=== PATIENT | male | born 1955 | race Caucasian/White ===

== ENCOUNTER → 2020-06-24 | Outpatient (CLI) | payer BC ==
--- NOTE | 2020-06-24 10:18 | CT ---
EXAMINATION TYPE: CT heart w calcium score DATE OF EXAM: 06/24/2020 COMPARISON: None. HISTORY: Screening for cardiovascular disorder. 213.9. Hypertension. CT DLP: 80.70 mGycm Automated exposure control for dose reduction was used. CT CALCIUM SCORING Coronary calcium is a marker for plaque (fatty deposits) in a blood vessel or atherosclerosis (harden ing of the arteries). The presence and amount of calcium detected in a coronary artery by the CT sca n, indicates the presence and amount of atherosclerotic plaque. These calcium deposits appear years before the development of heart disease symptoms such as chest pain and shortness of breath. A calcium score is computed for each of the coronary arteries based upon the volume and density of th e calcium deposits. This can be referred to as your calcified plaque burden. It does not correspond directly to the percentage of narrowing in the artery but does correlate with the severity of the un derlying coronary atherosclerosis. PROCEDURE TECHNIQUE - Prospective Gating was used. Slice thickness: 3mm. Density threshold (HU): 130, Pixel threshold: 3, Algorithm: discrete. RESULTS Region: LM Calcium Score ([place]): 0.00 Volume (mm3): 0.00 Mass (g): 0.00 Region: RCA Calcium Score ([place]): 6.07 Volume (mm3): 9.94 Mass (g): 3.31 Region: LAD Calcium Score ([place]): 71.41 Volume (mm3): 53.56 Mass (g): 17.85 Region: CX Calcium Score ([place]atston): 0.00 Volume (mm3): 0.00 Mass (g): 0.00 Total: Calcium Score ([place]atston): 77.48 Volume (mm3): 63.49 Mass (g): 21.16 TOTAL CALCIUM SCORE: 77.48 IMPRESSION: Right coronary artery noted dominant. Some multilevel spurring in the visualized thoracic spine. Calcium Score: 11-100 Implication: Definite, at least mild atherosclerotic plaque Risk of Coronary Artery Disease: Mild or minimal coronary narrowings likely. CALCIUM SCORE IMPLICATION RISK OF C ORONARY ARTERY DISEASE 0 No identifiable plaque Very low, generally less than 5% 1-10 Minimal identifiable plaque Very unlikely, less than 10% 11-100 Definite, at least mild atherosclerotic plaque Mild or m inimal coronary narrowings likely 101-400 Definite, at least moderate atherosclerotic plaque Mild coronary ar jb disease highly likely, significant narrowing possible 401 or Higher Extensive atherosclerotic plaque High lik elihood of at least one significant coronary narrowing
== END | disposition home or self-care (01) ==
LOC: RADCTMAIN 08:55
PROVIDERS: ATTEND Family Medicine
DX: Z13.6 Encounter for screening for cardiovascular disorders (principal); I25.10 Atherosclerotic heart disease of native coronary artery without angina pectoris; I10 Essential (primary) hypertension
CPT/HCPCS: 75571

== ENCOUNTER → 2020-12-22 | Outpatient (CLI) | payer BC ==
--- NOTE | 2020-12-22 12:02 | XR ---
EXAM TYPE: LUMBAR SPINE X RAY SERIES COMPARISON: NONE HISTORY: Pain TECHNIQUE: 4 views are submitted. FINDINGS: Alignment is anatomic. The pedicles are intact. The transverse processes are intact. There is hype rtrophic and degenerative changes at multiple levels with facet arthropathy involving the lower lumba r spine. 5 mm calcification overlying the left transverse process of L2. IMPRESSION: 1. Multilevel hypertrophic and degenerative disc disease with facet arthropathy. 2. 5 mm left upper quadrant calcification potentially within the left kidney correlate clinically.
== END | disposition home or self-care (01) ==
LOC: RADXRMAIN 09:54
PROVIDERS: ATTEND Family Medicine
DX: M51.36 Other intervertebral disc degeneration, lumbar region (principal); M46.96 Unspecified inflammatory spondylopathy, lumbar region
CPT/HCPCS: 72100

== ENCOUNTER → 2022-12-06 | Outpatient (CLI) | payer MEDICARE ==
--- NOTE | 2022-12-07 00:02 | MR ---
EXAMINATION TYPE: MR angio head wo con DATE OF EXAM: 12/06/2022 COMPARISON: None HISTORY: Stroke, aphasia. CONTRAST: None TECHNIQUE: Multiplanar multiecho imaging on a 3.0 Margie magnet is performed through the [place] [facility]. 3-D [id number] imaging is performed. Source images are reviewed on the computer in the axi al plane. Reconstructed images rotating on the computer are reviewed. FINDINGS: There is a mixed signal area within the anterior right frontal lobe extending towards the m argin. This measures 2.7 x 2.3 cm, example image series 301 image 137. This has some high signal area within the inferior portion measuring 1.6 x 1.0 cm. An acute to subacute hemorrhage may be present a t this location. Recommend additional evaluation with CT. Follow-up MRI brain may be useful. The internal carotid arteries bifurcate normally into A1 and M1 segments. The A2 segments are normal . Middle cerebral artery branches are normal. Anterior communicating artery is prominent at 0.6 cm. Aneurysm at the anterior communicating artery m ay be present. The right posterior communicating artery is absent. The left posterior communicating artery is absent. Vertebrobasilar arteries within the [id number] are normal. Posterior cerebral vasculature is norm al. No obstructions are identified. No significant flow-limiting stenosis is evident. IMPRESSIONS: 1. There may be hemorrhage in the right frontal lobe. Additional workup with CT is recommended. 2. 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
== END | disposition home or self-care (01) ==
LOC: RADMRIMAIN 18:57
PROVIDERS: ATTEND Family Medicine
DX: I60.9 Nontraumatic subarachnoid hemorrhage, unspecified (principal); I63.9 Cerebral infarction, unspecified; R47.01 Aphasia
CPT/HCPCS: 70544

== ENCOUNTER 2022-12-18 05:26 | Inpatient (IN) | payer MEDICARE ==
[2022-12-18] MEDS ORDERED: METOCLOPRAMIDE 5 MG/ML 2 ML VIAL IVP STA (06:41)
[2022-12-18] MEDS ORDERED: KETOROLAC 15 MG/ML 1 ML VIAL IVP STA (06:41)
[2022-12-18] MEDS ORDERED: SODIUM CHLORIDE 0.9% 1,000 ML IV STA (06:41)
[2022-12-18] MEDS ORDERED: diphenhydrAMINE 50 MG/ML 1 ML VIAL IVP STA (06:41)
--- NOTE | 2022-12-18 06:42 | ED ---
Headache HPI - General Chief Complaint: Headache Stated Complaint: Headache, Loss of memory, Shakes, Stroke history Time Seen by Provider: 12/18/22 06:42 Source: patient, RN notes reviewed Mode of arrival: wheelchair Limitations: no limitations - History of Present Illness Initial Comments: Patient is a pleasant 67-year-old male presenting to the emergency room with a spouse from home with complaints of severe headache. He reports that he had a headache yesterday throughout the day which resolved around 5 PM came back a few hours later. The headache persisted throughout the night and became so severe that he presented to the emergency room. He was concerned regarding the severity of his headache due to recent history of a hemorrhagic stroke which he had in August of this year while he was in [place] for the winter. He reports that he had multiple CT scans while in [place] and did not require any intervention for the brain bleed that was identified in the parietal region. He is following with his primary care provider locally in regards to follow-up from his brain bleed and headaches along with residual CVA symptoms of mild right- sided weakness along with occasional blurred vision and occasional slurred speech. His primary care provider referred him to a local neurologist whom he has not seen yet he has an appointment upcoming with Dr. Taylor. He was scheduled for a repeat computed tomography scan ordered by his primary care provider prior to seeing his new neurologist. He denies any new focal neurological deficits, new speech difficulties, new visual impairment, altered mental status, chest pain, shortness of breath, abdominal pain, nausea, vomiting, fevers or chills. In addition to his hemorrhagic stroke history he has a past medical history significant for breast cancer and hypertension. - Related Data Home Medications Medication Instructions Recorded Confirmed lisinopriL [Lisinopril] 10 mg PO DAILY 03/30/16 03/30/16 Allergies Allergy/AdvReac Type Severity Reaction Status Date / Time No Known Allergies Allergy Verified 12/18/22 05:35 Review of Systems ROS Statement: Those systems with pertinent positive or pertinent negative responses have been documented in the HPI. ROS Other: All systems not noted in ROS Statement are negative. Past Medical History Past Medical History: Cancer, CVA/TIA (Hemorrhagic with mild residual right- sided weakness and occasional slurred speech.), Hypertension Additional Past Medical History / Comment(s): breast cancer History of Any Multi-Drug Resistant Organisms: None Reported Past Surgical History: Breast Surgery Past Psychological History: No Psychological Hx Reported Smoking Status: Never smoker Past Alcohol Use History: Daily Past Drug Use History: None Reported General Exam Limitations: no limitations General appearance: alert, in no apparent distress Head exam: Present: atraumatic, normocephalic, normal inspection Eye exam: Present: normal appearance, PERRL, EOMI. Absent: scleral icterus, conjunctival injection, periorbital swelling ENT exam: Present: normal exam, mucous membranes moist Neck exam: Present: normal inspection, full ROM Respiratory exam: Present: normal lung sounds bilaterally. Absent: respiratory distress, wheezes, rales, rhonchi, stridor Cardiovascular Exam: Present: regular rate, normal rhythm, normal heart sounds. Absent: systolic murmur, diastolic murmur, rubs, gallop, clicks GI/Abdominal exam: Present: soft, normal bowel sounds. Absent: distended, tenderness, guarding, rebound, rigid Extremities exam: Present: normal inspection, full ROM. Absent: tenderness, pedal edema, joint swelling Back exam: Present: normal inspection, full ROM Neurological exam: Present: alert, oriented X3, other (Occasional slurred speech) Expanded Cranial nerves: EOM's Intact: Normal, Gag Reflex: Normal, Tongue Deviation: Normal, Nystagmus: Normal, Facial Sensation: Normal, Facial Palsy with Forehead Movement: Normal, Facial Palsy without Forehead Movement: Normal Motor strength exam: RUE: 5 (Strong but slightly weaker than left), LUE: 5, RLE: 5 (Strong but slightly weaker than left), LLE: 5 [place] Total: 15 Psychiatric exam: Present: normal affect, normal mood Skin exam: Present: warm, dry, intact, normal color. Absent: rash Course Vital Signs 12/18/22 12/18/22 05:35 07:00 Temperature 98.2 F 97.8 F Pulse Rate 71 66 Respiratory 18 16 Rate Blood Pressure 158/99 149/96 O2 Sat by Pulse 98 97 Oximetry Medical Decision Making - Medical Decision Making Was pt. sent in by a medical professional or institution (, PA, HV[employer]ET METAL INST[employer]ER, urgent care, hospital, or intermediate...) When possible be specific @ - No Did you speak to anyone other than the patient for history (EMS, parent, family, police, friend...)? What history was obtained from this source @ -No Did you review nursing and triage notes (agree or disagree)? Why? @ -I reviewed and agree with nursing and triage notes except no altered mental status or confusion present. Were old charts reviewed (outside hosp., previous admission, EMS record, old EKG, old radiological studies, urgent care reports/EKG's, intermediate records)? Report findings @ -No old charts were reviewed Differential Diagnosis (chest pain, altered mental status, abdominal pain women, abdominal pain men, vaginal bleeding, weakness, fever, dyspnea, syncope, headache, dizziness, GI bleed, back pain, seizure, CVA, palpatations, mental health, musculoskeletal)? @ -Differential Headache: Migraine, tension, cluster, carbon monoxide, central venous thrombosis, pension karma temporal arteritis, acute closure glaucoma, intercranial hemorrhage, mastoiditis, sinusitis, head injury, this is not meant to be an all-inclusive list. EKG interpreted by me (3pts min.). @ -None done X-rays interpreted by me (1pt min.). @ -None done CT interpreted by me (1pt min.). @ -CT of the brain: No acute intracranial hemorrhage mass or shift. Report per radiologist edematous changes with sulcal effacement involving right parietal lobe encephalomalacia anterior right frontal lobe likely secondary to previous infarct. U/S interpreted by me (1pt. min.). @ -None done What testing was considered but not performed or refused? (CT, X-rays, U/S, labs)? Why? @ -None What meds were considered but not given or refused? Why? @ -None Did you discuss the management of the patient with other professionals (professionals i.e. , WARREN, HV[employer] SHEET METAL INSTALLER, lab, RT, psych nurse, healthcare social worker, service provider, teacher, community development officer, correctional case manager)? Give summary @ -Yes, spoke with Dr. Conrad regarding patient's presentation previous workup and computed tomography scan results. He advised that he will see patient here at this facility and no need to transfer patient out to another facility for neurosurgery consult at this time. Spoke with Dr. Shea regarding patient's presentation workup and Dr. Juárez's accept since of the patient here at this facility advising the need for further evaluation and monitoring; she is accepting of admission with neurology consult. Was smoking cessation discussed for >3mins.? @ -No Was critical care preformed (if so, how long)? @ -No Were there social determinants of health that impacted care today? How? (Homelessness, low income, unemployed, alcoholism, drug addiction, transportation, low edu. Level, literacy, decrease access to med. care, penitentiary, r ehab)? @ -No Was there de-escalation of care discussed even if they declined (Discuss DNR or withdrawal of care, Hospice)? DNR status @ -No What co-morbidities impacted this encounter? (DM, HTN, Smoking, COPD, CAD, Cancer, CVA, ARF, Chemo, Hep., AIDS, mental health diagnosis, sleep apnea, morbid obesity)? @ -Hypertension, previous hemorrhagic stroke Was patient admitted / discharged? Hospital course, mention meds given and route, prescriptions, significant lab abnormalities, going to OR and other pertinent info. @ -57-year-old male presenting to the emergency room with persistent headache with remote history of hemorrhagic stroke noting residual symptoms of mild right-sided weakness, difficulty with speech and intermittent blurred vision. He denies any blurred vision at this time. CT of brain without contrast ordered by triage and provider. Additional orders of laboratory studies CBC, coags and CMP ordered. Will give migraine cocktail with 1 L IV fluids, Toradol, Reglan and Benadryl. Computed tomography scan with out acute intracranial hemorrhage however there is sulcal effacement involving the right parietal lobe and encephalomalacia of anterior right frontal along. Headache improved with migraine cocktail. Laboratory study results include normal CBC, normal coags slight dehydration with a BUN of 23, normal creatinine. Glucose elevated 109 over enzymes and electrolytes all normal. Findings of of computed tomography scan and previous neurovascular history discussed with on-call neurologist Dr. Ziegler who advised no indication for transfer of patient and he will see patient here at this facility. Spoke with Dr. Hickman covering for patient's primary care provider regarding patient's presentation workup and recommendation of admission with continued monitoring along with follow-up imaging to further evaluate etiology of sulcal effacement and encephalomalacia. She is accepting of admission. Will admit patient in stable condition to medical surgical unit under [facility] for further evaluation and treatment of headache and encephalomalacia Undiagnosed new problem with uncertain prognosis? @ -No Drug Therapy requiring intensive monitoring for toxicity (Heparin, Nitro, Insulin, Cardizem)? @ -No Were any procedures done? @ -No Diagnosis/symptom? @ -Encephalomalacia Acute, or Chronic, or Acute on Chronic? @ -Acute Uncomplicated (without systemic symptoms) or Complicated (systemic symptoms)? @ -Complicated Side effects of treatment? @ -No Exacerbation, Progression, or Severe Exacerbation? @ -No Poses a threat to life or bodily function? How? (Chest pain, USA, VT, pneumonia, PE, COPD, DKA, ARF, appy, cholecystitis, CVA, Diverticulitis, Homicidal, Suicidal, threat to staff... and all critical care pts) @ -Yes, at risk for cerebral infarct. Diagnosis/symptom? @ -Headache Acute, or Chronic, or Acute on Chronic? @ -Acute Uncomplicated (without systemic symptoms) or Complicated (systemic symptoms)? @ -Complicated Side effects of treatment? @ -none Exacerbation, Progression, or Severe Exacerbation] @ -no Poses a threat to life or bodily function? @ -Yes, history of hemorrhagic stroke at risk for cerebral infarct and repeat intracranial hemorrhage. Case discussed with Dr. Gonzalez. - Lab Data Result diagrams: 12/18/22 06:56 12/18/22 06:56 Lab Results 12/18/22 12/18/22 12/18/22 Range/Units 06:56 06:56 06:56 WBC 5.2 (3.8-10.6) k/uL RBC 4.84 (4.30-5.90) m/uL Hgb 14.5 (13.0-17.5) gm/dL Hct 42.1 (39.0-53.0) % MCV 87.0 (80.0-100.0) fL MCH 30.0 (25.0-35.0) pg MCHC 34.4 (31.0-37.0) g/dL RDW 13.4 (11.5-15.5) % Plt Count 196 (150-450) k/uL MPV 7.6 Neutrophils % (Manual) 65 % Lymphocytes % (Manual) 24 % Monocytes % (Manual) 10 % Eosinophils % (Manual) 1 % Neutrophils # (Manual) 3.38 (1.3-7.7) k/uL Lymphocytes # (Manual) 1.25 (1.0-4.8) k/uL Monocytes # (Manual) 0.52 (0-1.0) k/uL Eosinophils # (Manual) 0.05 (0-0.7) k/uL Nucleated RBCs 0 (0-0) /100 WBC Manual Slide Review Performed RBC Morphology Normal PT 10.4 (9.0-12.0) sec INR 1.0 (<1.2) APTT 22.8 (22.0-30.0) sec Sodium 137 (137-145) mmol/L Potassium 3.9 (3.5-5.1) mmol/L Chloride 103 (98-107) mmol/L Carbon Dioxide 25 (22-30) mmol/L Anion Gap 9 mmol/L BUN 23 H (9-20) mg/dL Creatinine 0.67 (0.66-1.25) mg/dL Est GFR (CKD-EPI)AfAm >90 (>60 ml/min/1.73 sqM) Est GFR (CKD-EPI)NonAf >90 (>60 ml/min/1.73 sqM) Glucose 109 H (74-99) mg/dL Calcium 9.0 (8.4-10.2) mg/dL Total Bilirubin 1.0 (0.2-1.3) mg/dL AST 32 (17-59) U/L ALT 25 (4-49) U/L Alkaline Phosphatase 71 (38-126) U/L Total Protein 7.3 (6.3-8.2) g/dL Albumin 4.3 (3.5-5.0) g/dL - Radiology Data Radiology results: report reviewed, image reviewed Disposition Clinical Impression: Headache, Encephalomalacia Disposition: ADMITTED IP TO THIS [facility] Condition: Stable Time of Disposition: 08:16
[2022-12-18 07:08] LABS: HCT 42.1 % (39.0-53.0); HGB 14.5 gm/dL (13.0-17.5); MCHC 34.4 g/dL (31.0-37.0); Mean Platelet Volume 7.6; Platelet Count 196 k/uL (150-450); RBC 4.84 m/uL (4.30-5.90); RDW 13.4 % (11.5-15.5); WBC 5.2 k/uL (3.8-10.6)
[2022-12-18 07:15] LABS: Partial Thromboplastin Time 22.8 sec (22.0-30.0); Prothrombin Time 10.4 sec (9.0-12.0)
[2022-12-18 07:28] LABS: ALT 25 U/L (4-49); AST 32 U/L (17-59); African American GFR (CKD) >90 (>60 ml/min/1.73 sqM); Albumin 4.3 g/dL (3.5-5.0); Alkaline Phosphatase 71 U/L (38-126); Anion Gap 9 mmol/L; Blood Urea Nitrogen 23 mg/dL (9-20); Carbon Dioxide 25 mmol/L (22-30); Chloride 103 mmol/L (98-107); Glucose 109 mg/dL (74-99); Non-African American GFR(CKD) >90 (>60 ml/min/1.73 sqM); Potassium 3.9 mmol/L (3.5-5.1); Sodium 137 mmol/L (137-145); Total Protein 7.3 g/dL (6.3-8.2)
--- NOTE | 2022-12-18 07:50 | CT ---
EXAMINATION TYPE: CT brain wo con DATE OF EXAM: 12/18/2022 COMPARISON: MRA head 12/06/2022 HISTORY: 67-year-old male headache, rule out intracranial hemorrhage. TECHNIQUE: Examination was done in axial plane without intravenous contrast. Coronal and sagittal r econstructions performed. CT DLP: 1142.4 mGycm Automated exposure control for dose reduction was used. FINDINGS: There appears to be slightly asymmetric sulcal effacement superior right parietal convexity. Encephal omalacia anterior right frontal lobe likely related to prior infarct. No midline shift or acute intracranial hemorrhage. No effacement of basal subarachnoid cisterns. No h ydrocephalus. Paranasal sinuses and mastoid air cells well pneumatized. Orbits and globes are intact. IMPRESSION: There appears to be some edematous change with sulcal effacement involving the right parietal lobe. R ecommend further assessment with MRI head without and with contrast as well as MRV. Evolving infarct and underlying mass are some considerations. We note the findings on recent MRA which suggested possi ble hemorrhage within the right frontal lobe, a separate region. The CT shows the patient's encephalo malacia here. Some underlying subacute or chronic (isodense or hypodense) blood products are possible if this corresponds to the site of patient's reported recent stroke. No acute intracranial hemorrhag e seen. Called to Dr. Gonzalez in the ER at 7:40am.
[2022-12-18 08:00] LABS: Eosinophils # (M) 0.05 k/uL (0-0.7); Lymphocytes # (M) 1.25 k/uL (1.0-4.8); Monocytes # (M) 0.52 k/uL (0-1.0); Neutrophils # (M) 3.38 k/uL (1.3-7.7); Neutrophils % (M) 65 %; Nucleated Red Blood Cells 0 /100 WBC (0-0); Total Cells Counted 100
[2022-12-18 08:02] LABS: RBC Morphology Normal
[2022-12-18] MEDS ORDERED: MORPHINE SULFATE 4 MG/ML SYRINGE IV PRN (08:21)
[2022-12-18] MEDS ORDERED: traMADol 50 MG TAB PO PRN (08:21)
[2022-12-18] MEDS ORDERED: NALOXONE 0.4 MG/ML 1 ML VIAL IV PRN (08:21)
[2022-12-18] MEDS: SODIUM CHLORIDE 0.9% 1,000 ML IV SCH (09:15)
--- NOTE | 2022-12-18 10:34 | CT ---
EXAMINATION TYPE: CT angio head neck DATE OF EXAM: 12/18/2022 COMPARISON: Correlation MRA 12/06/2022 HISTORY: 67-year-old male headache, Hit head while in [place], severe headache TECHNIQUE: Contiguous axial scanning of the head and neck performed with IV Contrast, patient injecte d with 65 mL of Isovue 370. Coronal/sagittal MIP reconstructions performed. 3-D reconstructions gener ated on a dedicated independent workstation. CT DLP: 590.9 mGycm Automated exposure control for dose reduction was used. FINDINGS: NECK: Conventional arch vessels branching anatomy. Mild atherosclerotic narrowing at the origin of the right vertebral artery. Both vertebral arteries a re codominant and otherwise patent throughout their course. The right common and right internal carotid arteries are widely patent. The left common and left internal carotid arteries are widely patent. NASCET criteria is utilized. HEAD: The dural venous sinuses are patent. The vertebral and basilar arteries as well as the remainder of the posterior circulation are patent w ithout any narrowing. The bilateral internal carotid arteries are patent with only mild atherosclerotic calcifications ben g the supraclinoid portions. There is variant anatomy of the PATRICK with fenestrated A1 segment which continues independently. 2 haseeb tional A2 branches arise at the level of the anterior communicating artery for a total of 3 anterior cerebral arteries distal to the ACOM. The anterior communicating artery aneurysm questioned on the henrietta hernandez's MRA is not confirmed. Remainder of the anterior circulation otherwise patent. IMPRESSION: NECK: 1. WIDELY PATENT CAROTID AND VERTEBRAL ARTERIES OF THE NECK. HEAD: 2. EXAM CONFIRMS PATENCY OF THE DURAL VENOUS SINUSES. MRV WILL NOT BE REQUIRED. 3. NO LARGE VESSEL INTRACRANIAL ARTERIAL OCCLUSION, SIGNIFICANT STENOSIS, OR ANEURYSMAL CHANGE IS SEE N. 4. ANATOMIC VARIATION OF THE ANTERIOR CEREBRAL ARTERY CIRCULATION OUTLINED ABOVE. THE QUESTIONED A COM ANEURYSM ON PREVIOUS MRA HEAD OF 12/06/2022 IS NOT CONFIRMED ON THIS STUDY.
[2022-12-18] MEDS ORDERED: hydrALAZINE HCL 20 MG/ML 1 ML VIAL IVP STA (10:37)
--- NOTE | 2022-12-18 12:07 | P.CNNES ---
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 Patient is accompanied with his . Patient stated that the yesterday between 9:00 to 5 PM he had very severe headache and was throughout the head and he said it was excruciating pain. He had no nausea vomiting no focal weakness or numbness. He just felt was very anxious she was 10 over 10. Which resolved. Otherwise and overnight he again started having the headache and at 4:00 in the morning that today he could not tolerate the headache anymore and has some nausea so he decided to come to seek medical attention.Denies any focal weakness numbness. Denies any recent head trauma. He denies being on any anticoagulation or antiplatelet that. He states that he has intermittent thumb tremor the right more than left hand and denies any loss of consciousness. He is on Keppra 750 mg 2 tablets twice a day. He has an appointment with Dr. Taylor neurologist end of this month. Of note patient had the MR angiography of the head without ordered by his primary which the patient completed in the 12/06/2022 and is reported as there may be hemorrhage in the right frontal lobe. Additional workup with CT is recommended. 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 He is pending to have MRI to be done about pending insurance authorization. He drinks about the 5 shots daily. He is on thiamine 100mg daily. He denies of any illicit drug use. Patient stated that in August 30/2023 patient had a significant head trauma to the head and it was over the left side but denies any loss of consciousness and that 2 days later later could not wake-him up with eyes rolling back and found to have a bleed over the right frontal and was invalid by multiple neurosurgeons no intervention was needed an unknown cause of the bleed and he was evaluated at [facility] in [place], [place]. He had the MRI of the brain at that time over there. As a result of the bleed he has some difficulty with speech. He had a seizure 2 weeks after his bleed as well. Some of the workup to this hospital visit consisted of: Initial blood pressure is 158/99 and repeated is 149/96. Cbc with different and comprehensive metabolic panels seems unremarkable. CT of the head is reported as there appears to be some at the Frances change with sulcal effacement involving the right parietal lobe. Recommend further assessment with MRI head with and without contrast as well as MRV. Evolving infarct and underlying mass are some consideration. We note the finding on the recent MRA which suggested possible hemorrhage within the right frontal lobe, a separate region. The CT shows the patient encephalomalacia here. Some underlying subacute or chronic) isodense or hypodense) blood products are possible if this corresponds to the site of patient reported recent stroke. No acute intracranial hemorrhage is seen. I personally reviewed the CT and agree with the report. CTA head and neck is reported as the CT of the neck is reported as widely patent carotid and vertebral arteries of the neck. Was a CT angiography of the head is reported as exam confirmed patency of the dural venous sinuses. MRV will not be required. No large vessel intracranial arterial occlusion, significant stenosis or aneurysm changes seen. Anatomic variation of the anterior cerebral artery circulation as outlined above. The question a calm aneurysm on the previous MRA head on 12/06/2022 is not confirmed on the study. Review of Systems Review of system: The 12 point system was reviewed and apparent positive and negative per HPI. Past Medical History Past Medical History: Cancer, CVA/TIA (Hemorrhagic with mild residual right- sided weakness and occasional slurred speech.), Hypertension Additional Past Medical History / Comment(s): breast cancer History of Any Multi-Drug Resistant Organisms: None Reported Past Surgical History: Breast Surgery Past Psychological History: No Psychological Hx Reported Smoking Status: Never smoker Past Alcohol Use History: Daily Past Drug Use History: None Reported Medications and Allergies Home Medications Medication Instructions Recorded Confirmed Type Thiamine [Vitamin B-1] 100 mg PO DAILY 12/18/22 12/18/22 History amLODIPine [Norvasc] 5 mg PO DAILY 12/18/22 12/18/22 History levETIRAcetam [Keppra] 1,500 mg PO BID 12/18/22 12/18/22 History Allergies Allergy/AdvReac Type Severity Reaction Status Date / Time No Known Allergies Allergy Verified 12/18/22 11:45 Physical Examination - Vital Signs Vital Signs: Vital Signs Temp Pulse Resp BP Pulse Ox 12/18/22 10:58 98.0 F 59 L 18 132/79 96 12/18/22 07:00 97.8 F 66 16 149/96 97 12/18/22 05:35 98.2 F 71 18 158/99 98 Intake and Output 12/17/22 12/18/22 12/18/22 22:59 06:59 14:59 Other: Weight 88.451 kg GENERAL: The patient is lying in bed and is not in acute distress. NEUROLOGICAL: Higher mental function: The patient is awake, alert, oriented to self, place and time. Patient is following commands. No aphasia and no neglect. Cranial nerves: The pupils are round, equal and reactive to light and accommodation. Visual branch are full to confrontation throughout. Extraocular movement is intact no nystagmus is noted. Facial sensation is normal to touch throughout. The facial strength is normal throughout. Hearing is normal bilaterally to hand rub. Tongue is midline and moved [id number] without any difficulty. No dysarthria is noted. Shoulder shrug is normal bilaterally. Motor: The strength is 5 over 5 throughout. Normal tone and bulk. Cerebellum: Normal finger to nose bilaterally. Sensation: Sensation is normal to touch throughout. Reflexes (right/left): 2+ throughout. Plantars are mute bilaterally. Results - Laboratory Findings CBC and BMP: 12/18/22 06:56 12/18/22 06:56 Abnormal Lab Findings: Abnormal Labs 12/18/22 06:56 BUN 23 H Glucose 109 H Assessment and Plan Assessment: Acute Cephalgia and on CT head today shows sulcal effacement over the right pareital: Rule out underlying mass or infarct.---currently headache improved ?Reported aneurysm on right PATRICK on recent MRA head on 12/06/22 but today's CTA was negative for aneurysm History of hemorrhagic stroke over the right parietal in 09/01/2022: Unknown cause (he was evaluated by Neurosurgeon over at [facility] at [place], [place] and no intervention). Had headache trauma to left head two days prior to event but unsure exact cause. 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 Ordered MRI Brain w/ and w/o STAT (to be completed tomorrow since no techs today). Ordered routine EEG since patient states having intermittent twitch of the bilateral thumbs (right > Left) without LOC. Rule out focal motor seizure with loss of awareness. Continued his home medication of Keppra 1500mg bid (on 750mg 2 tab bid). Recommend the SBP <140 and keep between 115-130's). Q2 hour neuro checks. Will have the patient be in ICU for closer monitoring. Recommend diagnostic cerebral angiogram as outpatient to rule out definitely any AVM or aneurysm. Placed on seizure precaution and pads. Placed on thiamine 100mg daily. Patient was counseled on alcohol cessation. Ordered alcohol level. Watch for any alcohol withdrawal and will defer management to primary team. He has a coming-up with Dr. Taylor (Neurologist at end of this month). Will defer rest of management to primary team and ICU team. Thank you for the consultation. The plan is discussed with patient, his who is at bedside, ED team and ICU team. Dr. Morales will start neurology service tomorrow A.M. Time with Patient: Greater than 30
[2022-12-18] MEDS: THIAMINE 100 MG TAB PO SCH (12:09)
[2022-12-18 14:53] LABS: Glucose,Whole Blood 141 mg/dL (70-110)
[2022-12-18] MEDS ORDERED: LABETALOL 5 MG/ML VIAL MDV IVP PRN (15:32)
[2022-12-18] MEDS: ACETAMINOPHEN TAB 325 MG TAB PO PRN (15:50)
[2022-12-18] MEDS: CLEVIDIPINE BUTYRATE 25 MG in EMPTY BAG 1 BAG IV SCH (17:37)
--- NOTE | 2022-12-19 00:59 | P.CNPUL ---
History of Present Illness Consult date: 12/19/22 Requesting physician: Dean Juárez Reason for consult: other (ICU management) Chief complaint: Severe headache History of present illness: I am seeing this patient in new consultation today 12/19/2022 for ICU management, as the patient had a severe headache on arrival, and there was concern for recurrent hemorrhagic stroke. This is a 67-year-old male with history of recent hemorrhagic stroke over the right frontal region on 09/01/2022. Apparently, while the patient was in [place], he had a hemorrhagic CVA which was managed at an outside facility. The patient attributes this to sustaining head trauma while hitting his head on his camper i believe. The patient reports initial right sided hemiparesis and vision disturbances. Following his recovery, the patient's only remaining residual was slurred speech, and he has seen a speech therapist outpatient. The patient also had 2 episodes of seizures following his stroke, and is currently maintained on Keppra. 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 The patient was scheduled with a local neurologist, Dr. Taylor, for follow-up later this month. Patient also has history of hypertension, breast cancer status post mastectomy 14 years ago, and alcoholism. The patient presented to the emergency room yesterday morning complaining of a severe headache rated 10 out of 10 on a 10 point numerical scale. This was accompanied with some nausea but no vomiting. No other deficits were noted at that time. He is not on any anticoagulants or antiplatelet medication. Initial workup included a brain CT which showed some edematous changes with sulcal effacement involving the right parietal lobe. There was concern for evolving infarct or underlying mass. A follow-up brain CTA showed no acute vascular occlusions or significant stenosis. On my evaluation, the patient is on room air, in no acute distress. His headache has resolved, and he has no focal neurological deficits. Apparently, the patient was hypertensive in the emergenc y room, and Cleviprex was ordered but did not have to be started. Blood pressure seems to be well managed on a combination of his home Norvasc and when necessary labetalol pushes. CBC and BMP on arrival were unremarkable. Serum alcohol level was less than 10. He has no other complaints at this time. Vital signs are stable. Review of Systems REVIEW OF SYSTEMS: CONSTITUTIONAL: Denies any recent significant weight loss or weight gain. EYES: Denies change in vision. EARS, NOSE, MOUTH, THROAT: Denies headaches, denies sore throat. CARDIOVASCULAR: Denies chest pain, palpitations or syncopal episodes. RESPIRATORY: Denies shortness of breath, cough, congestion or hemoptysis. GASTROINTESTINAL: Denies change in appetite, abdominal pain, nausea and vomiting, or diarrhea GENITOURINARY: Denies hematuria, denies infections. MUSKULOSKELETAL: Denies pain, denies swelling. INTEGUMENTARY: Denies rash, denies eczema. NEUROLOGICAL: See HPI PSYCHIATRIC: Denies anxiety, denies depression. HEMATOLOGIC/LYMPHATIC: Denies anemia, denies enlarged lymph node Past Medical History Past Medical History: Cancer, CVA/TIA, Hypertension Additional Past Medical History / Comment(s): breast cancer History of Any Multi-Drug Resistant Organisms: None Reported Past Surgical History: Breast Surgery Past Anesthesia/Blood Transfusion Reactions: No Reported Reaction Type of Cardiac Device: Loop Device Placement Date:: September 2022 Past Psychological History: No Psychological Hx Reported Smoking Status: Never smoker Past Alcohol Use History: Daily Past Drug Use History: None Reported - Past Family History Father Family Medical History: CVA/TIA Medications and Allergies Home Medications Medication Instructions Recorded Confirmed Type Thiamine [Vitamin B-1] 100 mg PO DAILY 12/18/22 12/18/22 History amLODIPine [Norvasc] 5 mg PO DAILY 12/18/22 12/18/22 History levETIRAcetam [Keppra] 1,500 mg PO BID 12/18/22 12/18/22 History Allergies Allergy/AdvReac Type Severity Reaction Status Date / Time No Known Allergies Allergy Verified 12/18/22 11:45 Physical Exam Vitals: Vital Signs Temp Pulse Pulse Resp BP Pulse Ox 12/18/22 23:00 53 L 14 136/85 92 L 12/18/22 22:30 54 L 11 L 125/91 93 L 12/18/22 22:00 52 L 10 L 131/81 96 12/18/22 21:30 53 L 13 130/84 92 L 12/18/22 21:00 55 L 19 140/88 93 L 12/18/22 20:30 56 L 12 136/81 94 L 12/18/22 20:00 98.1 F 57 L 54 L 14 134/85 93 L 12/18/22 19:30 57 L 14 129/78 93 L 12/18/22 19:00 57 L 16 123/78 93 L 12/18/22 18:30 58 L 17 127/82 93 L 12/18/22 18:00 60 15 129/79 94 L 12/18/22 17:30 59 L 15 122/76 94 L 12/18/22 17:00 62 13 134/79 94 L 12/18/22 16:30 69 15 135/79 93 L 12/18/22 16:00 98.1 F 68 12 123/78 93 L 12/18/22 15:30 64 15 132/87 92 L 12/18/22 15:00 98.1 F 70 19 143/86 95 12/18/22 14:47 98.7 F 68 18 139/90 97 12/18/22 12:00 65 18 114/65 96 12/18/22 10:58 98.0 F 59 L 18 132/79 96 12/18/22 07:00 97.8 F 66 16 149/96 97 12/18/22 05:35 98.2 F 71 18 158/99 98 Intake and Output 12/18/22 12/18/22 12/19/22 14:59 22:59 06:59 Intake Total 800 75 Output Total 0 300 Balance 800 -225 Intake: IV 600 75 Sodium Chloride 0.9% 1, 600 75 000 ml @ 75 mls/hr IV . [id number] [facility] Rx#:[id number] Oral 200 Output: Urine 0 300 Other: Voiding Method Urinal Weight 88.451 kg GENERAL EXAM: Alert, 67-year-old white male, comfortable in no apparent distress. HEAD: Normocephalic and atraumatic EYES: Normal reaction of pupils, equal size. Equal tracking NOSE: Clear with pink turbinates. THROAT: No erythema or exudates. NECK: No masses, no JVD. CHEST: No chest wall deformity. LUNGS: Equal air entry with no crackles, wheeze, rhonchi or dullness. No conversational dyspnea or accessory muscle use.. CVS: S1 and S2 normal with no audible murmur, regular rhythm. No extra heart sounds ABDOMEN: No hepatosplenomegaly, active bowel sounds, no guarding or rigidity. SPINE: No scoliosis or deformity SKIN: No rashes CENTRAL NERVOUS SYSTEM: No focal deficits, tone is normal in all 4 extremities. No dysarthria or disphasia noted EXTREMITIES: There is no peripheral edema, clubbing, or cyanosis. Peripheral pulses are intact. Results - Laboratory Findings CBC and BMP: 12/18/22 06:56 12/18/22 06:56 PT/INR, D-dimer PT 10.4 sec (9.0-12.0) 12/18/22 06:56 INR 1.0 (<1.2) 12/18/22 06:56 Abnormal lab findings: Abnormal Labs 12/18/22 12/18/22 06:56 14:50 BUN 23 H Glucose 109 H POC Glucose (mg/dL) 141 H Assessment and Plan Assessment: Acute headache, CT of the brain today shows sulcal effacement over the right parietal lobe which was concerning for mass or evolving infarct. Headache has improved. History of hemorrhagic stroke of the right frontal area in August,. No surgical intervention was done. 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 History of seizures following brain bleed. No reported seizures since starting Keppra Hypertension Alcoholism, reports drinking approximately 5 shots of liquor per day. Serum alcohol level was less than 10 on arrival. Remote history of breast cancer status post bilateral mastectomy approximately 14 years ago Plan: Patient's medications and labs reviewed Appears hemodynamically stable Neurology has ordered a follow-up brain MRI with and without contrast Continue Keppra and seizure precautions Neuro checks Monitor CIWA, and possible need for when necessary Ativan. Already on thiamine replacement Patient will be transferred out of the intensive care unit once okayed by ne urology I have personally seen and examined the patient, performed the documentation and the assessment and plan as written. Number of minutes spent on the visit:20 Time with Patient: Greater than 30
[2022-12-19 03:42] LABS: Basophils % (A) 1 %; Eosinophils # (A) 0.1 k/uL (0-0.7); Eosinophils % (A) 2 %; HGB 13.5 gm/dL (13.0-17.5); Lymphocytes # (A) 1.4 k/uL (1.0-4.8); Lymphocytes % (A) 39 %; MCH 29.9 pg (25.0-35.0); MCV 90.5 fL (80.0-100.0); Mean Platelet Volume 8.2; Monocytes # (A) 0.4 k/uL (0-1.0); Monocytes % (A) 11 %; Neutrophils # (A) 1.5 k/uL (1.3-7.7); Neutrophils % (A) 43 %; Platelet Count 177 k/uL (150-450); RBC 4.53 m/uL (4.30-5.90); RDW 13.7 % (11.5-15.5); WBC 3.5 k/uL (3.8-10.6)
[2022-12-19 03:56] LABS: African American GFR (CKD) >90 (>60 ml/min/1.73 sqM); Anion Gap 4 mmol/L; Blood Urea Nitrogen 19 mg/dL (9-20); Calcium 8.6 mg/dL (8.4-10.2); Carbon Dioxide 28 mmol/L (22-30); Chloride 106 mmol/L (98-107); Glucose 105 mg/dL (74-99); Non-African American GFR(CKD) >90 (>60 ml/min/1.73 sqM); Sodium 138 mmol/L (137-145)
[2022-12-19] MEDS: ACETAMINOPHEN TAB 325 MG TAB PO PRN ×3 (06:23→18:24)
[2022-12-19] MEDS: SODIUM CHLORIDE 0.9% 1,000 ML IV SCH ×2 (06:23→12:12)
[2022-12-19] MEDS: THIAMINE 100 MG TAB PO SCH (08:11)
[2022-12-19] MEDS: amLODIPine 5 MG TAB PO SCH (08:11)
--- NOTE | 2022-12-19 08:21 | P.HPIM ---
History of Present Illness H&P Date: 12/18/22 Chief Complaint: Headache 57-year-old male presenting to the emergency room with persistent headache with remote history of hemorrhagic stroke noting residual symptoms of mild right-sided weakness, difficulty with speech and intermittent blurred vision. He denies any blurred vision at this time. CT of brain without contrast ordered by triage and provider. Additional orders of laboratory studies CBC, coags and CMP ordered. Will give migraine cocktail with 1 L IV fluids, Toradol, Reglan and Benadryl. Computed tomography scan with out acute intracranial hemorrhage however there is sulcal effacement involving the right parietal lobe and encephalomalacia of ant erior right frontal along. Headache improved with migraine cocktail. Laboratory study results include normal CBC, normal coags slight dehydration with a BUN of 23, normal creatinine. Glucose elevated 109 over enzymes and electrolytes all normal. Findings of of computed tomography scan and previous neurovascular history discussed with on-call neurologist Dr. Ziegler who advised no indication for transfer of patient and he will see patient here at this facility. Patient is being admitted for continued monitoring along with follow-up imaging to further evaluate etiology of sulcal effacement and encephalomalacia. Review of Systems REVIEW OF SYSTEMS: CONSTITUTIONAL: No fever, no malaise, no fatigue. HEENT: No recent visual problems or hearing problems. Denied any sore throat. CARDIOVASCULAR: No chest pain, orthopnea, PND, no palpitations, no syncope. PULMONARY: No shortness of breath, no cough, no hemoptysis. GASTROINTESTINAL: No diarrhea, no nausea, no vomiting, no abdominal pain. NEUROLOGICAL: No headaches, no weakness, no numbness. HEMATOLOGICAL: Denies any bleeding or petechiae. GENITOURINARY: Denies any burning micturition, frequency, or urgency. MUSCULOSKELETAL/RHEUMATOLOGICAL: Denies any joint pain, swelling, or any muscle pain. ENDOCRINE: Denies any polyuria or polydipsia. The rest of the 14-point review of systems is negative. Past Medical History Past Medical History: Cancer, CVA/TIA (Hemorrhagic with mild residual right- sided weakness and occasional slurred speech.), Hypertension Additional Past Medical History / Comment(s): breast cancer History of Any Multi-Drug Resistant Organisms: None Reported Past Surgical History: Breast Surgery Past Anesthesia/Blood Transfusion Reactions: No Reported Reaction Past Psychological History: No Psychological Hx Reported Smoking Status: Never smoker Past Alcohol Use History: Daily Past Drug Use History: None Reported - Past Family History Father Family Medical History: CVA/TIA Medications and Allergies Home Medications Medication Instructions Recorded Confirmed Type Thiamine [Vitamin B-1] 100 mg PO DAILY 12/18/22 12/18/22 History amLODIPine [Norvasc] 5 mg PO DAILY 12/18/22 12/18/22 History levETIRAcetam [Keppra] 1,500 mg PO BID 12/18/22 12/18/22 History Allergies Allergy/AdvReac Type Severity Reaction Status Date / Time No Known Allergies Allergy Verified 12/18/22 11:45 Physical Exam Vitals: Vital Signs Temp Pulse Resp BP Pulse Ox 12/18/22 14:47 98.7 F 68 18 139/90 97 12/18/22 12:00 65 18 114/65 96 12/18/22 10:58 98.0 F 59 L 18 132/79 96 12/18/22 07:00 97.8 F 66 16 149/96 97 12/18/22 05:35 98.2 F 71 18 158/99 98 Intake and Output 12/18/22 12/18/22 12/18/22 06:59 14:59 22:59 Other: Weight 88.451 kg 88.451 kg PHYSICAL EXAMINATION: GENERAL: The patient is alert and oriented x3, not in any acute distress. Well developed, well nourished. HEENT: Pupils are round and equally reacting to light. EOMI. No scleral icterus. No conjunctival pallor. Normocephalic, atraumatic. No pharyngeal erythema. No thyromegaly. CARDIOVASCULAR: S1 and S2 present. No murmurs, rubs, or gallops. PULMONARY: Chest is clear to auscultation, no wheezing or crackles. ABDOMEN: Soft, nontender, nondistended, normoactive bowel sounds. No palpable organomegaly. MUSCULOSKELETAL: No joint swelling or deformity. EXTREMITIES: No cyanosis, clubbing, or pedal edema. NEUROLOGICAL: Gross neurological examination did not reveal any focal deficits. SKIN: No rashes. Results CBC & Chem 7: 12/19/22 03:31 12/19/22 03:31 Labs: Abnormal Lab Results - Last 24 Hours (Table) 12/18/22 12/18/22 Range/Units 06:56 14:50 BUN 23 H (9-20) mg/dL Glucose 109 H (74-99) mg/dL POC Glucose (mg/dL) 141 H (70-110) mg/dL Thrombosis Risk Factor Assmnt - Choose All That Apply Each Risk Factor Represents 2 Points: Age 61-74 years Thrombosis Risk Factor Assessment Total Risk Factor Score: 2 Thrombosis Risk Factor Assessment Level: Low Risk Assessment and Plan Assessment: 1. Acute onset headache/ Cephalgia; -- CT of the brain today shows sulcal effacement over the right parietal lobe which was concerning for mass or evolving infarct. Headache has improved. -- Reported aneurysm on right PATRICK on recent MRA head on 12/06/22 but today's CTA was negative for aneurysm - Neurology has ordered a follow-up brain MRI with and without contrast; Recommend the SBP <140 and keep between 115-130's); Q2 hour neuro checks. 2. History of hemorrhagic stroke of the right frontal area in August,. 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 3. History of seizures related to brain bleed; remains on Keppra 1500mg bid - seizure precautions 4. Hypertension 5. Alcoholism, reports drinking approximately 5 shots of liquor per day. Serum alcohol level was less than 10 on arrival - pending withdrawls; [facility] protocol recommended - thiamine and folic acid 6. History of breast cancer status post bilateral mastectomy approximately 14 years ago DVT Prophylaxis; SCDs CODE STATUS; FULL CODE
[2022-12-19] MEDS: CLEVIDIPINE BUTYRATE 25 MG in EMPTY BAG 1 BAG IV SCH ×2 (09:22→12:12)
--- NOTE | 2022-12-19 13:00 | EEG ---
ELECTROENCEPHALOGRAM REPORT PREAMBLE: This is a 67-year-old male with history of seizure, has some tremors. Rule out seizure. CURRENT MEDICATIONS: 1. Cleviprex. 2. Keppra. 3. Morphine. 4. Vitamin B1. 5. Ultram. EEG FINDINGS: This is a 21-channel digital EEG recorded with video component, utilizing 10/20 international system with referential and bipolar montages. Background consists of well developed, well regulated moderate voltage activity in 8 to 9 hertz alpha. Background is posterior dominant and reactive to eye opening and closing. Photic driving response was not clearly seen. Some drowsiness was seen with appearance of bilaterally symmetric theta frequency rhythm. Deeper stages of sleep were not seen. No focal or generalized epileptiform activity was seen. IMPRESSION: This is a normal awake and drowsy EEG. No focal, lateralized, or epileptiform activity was seen. MMODL / IJN: [id number] /
--- NOTE | 2022-12-19 15:05 | MR ---
EXAMINATION TYPE: MR brain wo/w con DATE OF EXAM: 12/19/2022 COMPARISON: CT brain 12/18/2022, CTA 12/18/2022 HISTORY: Headache, hx recent stroke/seizure. Evaluate for brain bleed/aneurysm. CONTRAST: Performed utilizing 10 mL intravenous Gadavist gadolinium contrast. TECHNIQUE: Multiplanar, multiecho imaging on a 3.0 Margie magnet is performed through the brain. Stud y is performed within 24 hours of arrival to the hospital. The craniovertebral junction is normal. The pituitary is normal. There appears to be an area of encephalomalacia within the inferior lateral right frontal lobe. Withi n the inferior portion of this cavity there is some hyperintensity on T1 and T2-weighted sequences. T his could be related to some old hemorrhage. Signal change to suggest acute hemorrhage is not evident . Enhancement is not identified. Diffusion-weighted imaging is performed. There is a small area of increased signal along the medial right frontal lobe cortex. Series 303 image 176. Small amount of area within the right parietal occip ital junction may be present, image 176. A small subcortical area of hyperintensity may be present in the right occipital region, series 303 image 160. This area correlates with some white matter change s. Some focal ischemic changes may be present in these areas. On T2 and inversion recovery weighted sequences there is a large area of subcortical white matter hyp erintense signal could be related to white matter ischemic change to the right watershed region. Vaso genic edema should be considered. Suspicious enhancement is not identified within this region. Some s imilar vasogenic edema may be present within the left temporal lobe Additional small areas of deep white matter changes are present scattered within the bilateral fronta l lobes left prior occipital region and periventricular white matter. No suspicious areas of enhancement are evident. No suspicious aneurysm identified. Previous fullness in the anterior communicating artery region is not appreciated on the current examination. Ventricles and sulci are appropriate for the patient age. IMPRESSIONS: 1. Punctate areas of hyperintensity on diffusion suggests tiny focal acute ischemic changes within th e right watershed, posterior right centrum semiovale and anterior medial left frontal lobe cortex. 2. Subacute to old right watershed region white matter ischemic changes. Differential diagnosis shoul d include vasogenic edema. Milder similar appearance may be within the lateral left temporal lobe. Th is raises the possibility of underlying neoplasm although not clearly identified on the current exam. 3. Findings suggest subacute hemorrhage right frontal lobe cavity. Acute hemorrhage is not evident.
[2022-12-20] MEDS: SODIUM CHLORIDE 0.9% 1,000 ML IV SCH (00:28)
[2022-12-20] MEDS: ACETAMINOPHEN TAB 325 MG TAB PO PRN ×2 (05:56→15:30)
--- NOTE | 2022-12-20 08:18 | P.PN ---
Subjective Progress Note Date: 12/19/22 He is feeling better today, reports headache is subsiding, no dizziness, blurry vision, weakness. Pt s/p MRI today which does not show any new hemorrhage or CVA but redemonstrates subacute frontal lobe injury. BP well controlled. Objective - Vital Signs Vital signs: Vital Signs Temp 97.9 F 12/20/22 04:00 Pulse 51 L 12/20/22 07:00 Resp 12 12/20/22 07:00 BP 129/85 12/20/22 07:00 Pulse Ox 96 12/20/22 07:00 FiO2 Intake & Output 12/19/22 12/20/22 12/20/22 18:59 06:59 18:59 Intake Total 1007.699 825 75 Output Total 400 450 Balance 607.699 375 75 Weight 100.9 kg Intake: IV 975 825 75 Sodium Chloride 0.9% 1, 975 825 75 000 ml @ 75 mls/hr IV . [id number] [facility] Rx#:[id number] Intake, IV Titration 32.699 Amount Clevidipine Butyrate 25 32.699 mg In Empty Bag 1 bag @ 1 MG/HR 2 mls/hr IV .Q24H [facility] Rx#:[id number] Output: Urine 400 450 Other: Voiding Method Urinal Urinal # Voids 1 0 0 # Bowel Movements 1 - Exam Gen: well developed, well nourished male in NAD CV: RRR, no murmur Lungs: Normal effort, clear throughout Neuro: AAOx3 no focal deficit - Labs CBC & Chem 7: 12/19/22 03:31 12/19/22 03:31 Assessment and Plan Plan: Continue to closely monitor in ICU, Neurology and critical care following. Control BP and seizure precautions
[2022-12-20] MEDS: THIAMINE 100 MG TAB PO SCH (08:52)
[2022-12-20] MEDS: amLODIPine 5 MG TAB PO SCH (08:52)
--- NOTE | 2022-12-20 10:06 | P.PN ---
Subjective Progress Note Date: 12/19/[address] Patient initially seen by Dr. Dean Juárez. Please refer to his note for details. Patient is a 67-year-old male with history of brain bleed on 08/11/2022 of unknown cause. He did suffer from a closed head injury 2 days prior to the admission for brain bleed, when he tried to get up from underneath a fifth wheel truck, stood up and hit his head fairly hard on the top. 2 days later he had a seizure, was at that time in [place] in [place]. He was admitted to the hospital and was found to have right frontal hematoma. Did not require surgery. He had a second seizure in the hospital. He was started on Keppra. He was hospitalized for 11 days. Patient states that it was not clearly mentioned if the brain bleed was related to the head trauma 2 days prior as mentioned above. He came to the hospital with chief complaints of worsening headache, even hurting to walk. It was very intense headache 10/10, could not tolerate it. At present the headache is 1/10. Patient's was also present, who mentions that patient has been having headaches almost on a daily basis since his admission to the hospital in August 2022. However the headache was very intense, unbearable yesterday and the day before. He is retired for last 8 years. Patient has an appointment with Dr. Taylor on 01/06/2022. Some of the workup to this hospital visit consisted of: Initial blood pressure is 158/99 and repeated is 149/96. Cbc with different and comprehensive metabolic panels seems unremarkable. CT of the head is reported as there appears to be some at the Frances change with sulcal effacement involving the right parietal lobe. Recommend further assessment with MRI head with and without contrast as well as MRV. Evolving infarct and underlying mass are some consideration. We note the finding on the recent MRA which suggested possible hemorrhage within the right frontal lobe, a separate region. The CT shows the patient encephalomalacia here. Some underlying subacute or chronic) isodense or hypodense) blood products are possible if this corresponds to the site of patient reported recent stroke. No acute intracranial hemorrhage is seen. I personally reviewed the CT and agree with the report. CTA head and neck is reported as the CT of the neck is reported as widely patent carotid and vertebral arteries of the neck. Was a CT angiography of the head is reported as exam confirmed patency of the dural venous sinuses. MRV will not be required. No large vessel intracranial arterial occlusion, significant stenosis or aneurysm changes seen. Anatomic variation of the anterior cerebral artery circulation as outlined above. The question a calm aneurysm on the previous MRA head on 12/06/2022 is not confirmed on the study. Objective - Vital Signs Vital signs: Vital Signs Temp 99.7 F H 12/19/22 12:00 Pulse 56 L 12/19/22 16:00 Resp 12 12/19/22 16:00 BP 133/86 12/19/22 16:00 Pulse Ox 94 L 12/19/22 16:00 FiO2 Intake & Output 12/18/22 12/19/22 12/19/22 18:59 06:59 18:59 Intake Total 500 900 782.699 Output Total 0 700 400 Balance 500 200 382.699 Weight 88.451 kg 102.2 kg Intake: IV 300 900 750 Sodium Chloride 0.9% 1, 300 900 750 000 ml @ 75 mls/hr IV . [id number] [facility] Rx#:[id number] Intake, IV Titration 32.699 Amount Clevidipine Butyrate 25 32.699 mg In Empty Bag 1 bag @ 1 MG/HR 2 mls/hr IV .Q24H [facility] Rx#:[id number] Oral 200 Output: Urine 0 700 400 Other: Voiding Method Urinal Urinal # Voids 1 # Bowel Movements 1 - Exam Patient is a young-looking elderly male, very pleasant in no acute distress. Patient is alert awake oriented to time place and person. Speech and language functions are normal. Patient can name and repeat very well. No aphasia or dysarthria. Attention, concentration and fund of knowledge is adequate. On cranial nerve examination, pupils are equal, round and reacting to light, visual branch are full on confrontation, with no neglect on double simultaneous stimulation. Extraocular muscles are intact with no nystagmus. Face is symmetric, tongue protrudes to the midline. Palatal elevation and sensation normal, hearing and shoulder shrug normal, facial sensation normal. On muscle strength testing, there left-sided pronation but no drift, and the strength is normal in arms and legs distally and proximally. Sensory to touch is equal with no neglect on double simultaneous stimulation. Cerebellar function showed no ataxia for [id number] testing. No dysdiado chokinesia. No ataxia for [id number] testing on either side. Tone and bulk of muscles normal. Gait deferred.. On general examination, there is no carotid bruit or murmur, S1-S2 audible. Chest is clear on consultation. Abdomen is soft nontender. No organomegaly, bowel sounds present. Peripheral pulses are present. No edema. - Labs CBC & Chem 7: 12/19/22 03:31 12/19/22 03:31 Labs: Abnormal Lab Results - Last 24 Hours (Table) 12/19/22 12/19/22 Range/Units 03:31 03:31 WBC 3.5 L (3.8-10.6) k/uL Glucose 105 H (74-99) mg/dL Assessment and Plan Assessment: Acute Cephalgia and on CT head today shows sulcal effacement over the right pareital: Rule out underlying mass or infarct.---currently headache improved ?Reported aneurysm on right PATRICK on recent MRA head on 12/06/22 but today's CTA was negative for aneurysm History of hemorrhagic stroke over the right parietal in 09/01/2022: Unknown cause (he was evaluated by Neurosurgeon over at [facility] at [place], [place] and no intervention). Had headache trauma to left head two days prior to event but unsure exact cause. 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 Dean Juárez had spoken to reading radiology and he stated no aneurysm on CTA and he felt MRA showed anatomical variation but he did not feel aneurysm. * MRI Brain w/ and w/o revealed punctate areas of hyperintensity on diffusion suggest any focal acute ischemic changes within the right watershed, posterior right centrum semiovale and anterior medial left frontal lobe cortex. Subacute to old right watershed region white matter ischemic changes. Differential diagnosis should include vasogenic edema. Milder similar appearance may be within the lateral left temporal lobe. This raises possibility of underlying neoplasm although not clearly identified on the current exam. Finding suggests subacute hemorrhage right frontal lobe cavity. Acute hemorrhages not evident. * Check 2-D echo with bubble study to rule out PFO. * Fasting lipid panel, hemoglobin A1c * EEG was performed, which is normal awake and drowsy. No epileptiform activity was seen. Continue Keppra 1500 mg twice a day. * Recommend the SBP <140 and keep between 115-130's). * Patient's headache has almost resolved, now 07/19. * Recommend diagnostic cerebral angiogram as outpatient to rule out definitely any AVM or aneurysm. * Placed on seizure precaution and pads. * Continue thiamine 100mg daily. * Patient was counseled on alcohol cessation. Ordered alcohol level. Watch for any alcohol withdrawal and will defer management to primary team. * Patient has an appointment with Dr. Taylor, his neurologist on 01/06/2023. * Will defer rest of management to primary team and ICU team. * Awaiting outside records for our review. Time with Patient: Greater than 30
--- NOTE | 2022-12-20 10:15 | P.PN ---
Subjective Progress Note Date: 12/20/22 I am seeing this patient in new consultation today 12/19/2022 for ICU management, as the patient had a severe headache on arrival, and there was concern for recurrent hemorrhagic stroke. This is a 67-year-old male with history of recent hemorrhagic stroke over the right frontal region on 09/01/2022. Apparently, while the patient was in [place], he had a hemorrhagic CVA which was managed at an outside facility. The patient attributes this to sustaining head trauma while hitting his head on his camper i believe. The patient reports initial right sided hemiparesis and vision disturbances. Following his recovery, the patient's only remaining residual was slurred speech, and he has seen a speech therapist outpatient. The patient also had 2 episodes of seizures following his stroke, and is currently maintained on Keppra. 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 The patient was scheduled with a local neurologist, Dr. Taylor, for follow-up later this month. Patient also has history of hypertension, breast cancer status post mastectomy 14 years ago, and alcoholism. The patient presented to the emergency room yesterday morning complaining of a severe headache rated 10 out of 10 on a 10 point numerical scale. This was accompanied with some nausea but no vomiting. No other deficits were noted at that time. He is not on any anticoagulants or antiplatelet medication. Initial workup included a brain CT which showed some edematous changes with sulcal effacement involving the right parietal lobe. There was concern for evolving infarct or underlying mass. A follow-up brain CTA showed no acute vascular occlusions or significant stenosis. On my evaluation, the patient is on room air, in no acute distress. His headache has resolved, and he has no focal neurological deficits. Apparently, the patient was hypertensive in the emergency room, and Cleviprex was ordered but did not have to be started. Blood pressure seems to be well managed on a combination of his home Norvasc and when necessary labetalol pushes. CBC and BMP on arrival were unremarkable. Serum alcohol level was less than 10. He has no other complaints at this time. Vital signs are stable. The patient is seen today 12/20/2022 in follow-up in the intensive care unit. He is currently awake and alert in no acute distress. Status MRI of the brain revealed punctate areas of hyperintensity and diffusion suggest any focal acute ischemic changes within the right watershed, posterior right centrum semiovale and anterior medial left frontal lobe cortex. Subacute old right watershed region white matter ischemic changes. Differential diagnosis should include vasogenic edema. Possibility of underlying neoplasm not totally excluded. Findings suggest subacute hemorrhage right frontal lobe cavity. Acute hemorrhage is not evident. Blood pressure stable. Bradycardic. Maintaining O2 saturations in the 90s on room air. He's been off the Cleviprex. Continued on amlodipine. Continued on Keppra. Objective - Vital Signs Vital signs: Vital Signs Temp 97.9 F 12/20/22 04:00 Pulse 54 L 12/20/22 09:00 Resp 9 L 12/20/22 09:00 BP 129/83 12/20/22 09:00 Pulse Ox 96 12/20/22 08:00 FiO2 Intake & Output 12/19/22 12/20/22 12/20/22 18:59 06:59 18:59 Intake Total 1007.699 825 150 Output Total 400 450 Balance 607.699 375 150 Weight 100.9 kg Intake: IV 975 825 150 Sodium Chloride 0.9% 1, 975 825 150 000 ml @ 75 mls/hr IV . [id number] [facility] Rx#:[id number] Intake, IV Titration 32.699 Amount Clevidipine Butyrate 25 32.699 mg In Empty Bag 1 bag @ 1 MG/HR 2 mls/hr IV .Q24H [facility] Rx#:[id number] Output: Urine 400 450 Other: Voiding Method Urinal Urinal # Voids 1 0 0 # Bowel Movements 1 - Exam GENERAL EXAM: Alert, and it, very pleasant 67-year-old male, on room air, comfortable in no apparent distress. HEAD: Normocephalic and atraumatic EYES: Normal reaction of pupils, equal size. Equal tracking NOSE: Clear with pink turbinates. THROAT: No erythema or exudates. NECK: No masses, no JVD. CHEST: No chest wall deformity. LUNGS: Equal air entry with no crackles, wheeze, rhonchi or dullness. No conversational dyspnea. CVS: S1 and S2 normal with no audible murmur, regular rhythm. No extra heart sounds ABDOMEN: No hepatosplenomegaly, active bowel sounds, no guarding or rigidity. SPINE: No scoliosis or deformity SKIN: No rashes CENTRAL NERVOUS SYSTEM: No focal deficits, tone is normal in all 4 extremities. No dysarthria or disphasia noted EXTREMITIES: There is no peripheral edema, clubbing, or cyanosis. Peripheral pulses are intact. - Labs CBC & Chem 7: 12/19/22 03:31 12/19/22 03:31 Assessment and Plan Assessment: Acute headache, CT of the brain today shows sulcal effacement over the right parietal lobe which was concerning for mass or evolving infarct. Headache has improved. MRI of the brain revealed punctate areas of hyperintensity and diffusion suggest any focal acute ischemic changes within the right watershed, posterior right centrum semiovale and anterior medial left frontal lobe cortex. Subacute old right watershed region white matter ischemic changes. Differential diagnosis should include vasogenic edema. Possibility of underlying neoplasm not totally excluded. Findings suggest subacute hemorrhage right frontal lobe cavity. Acute hemorrhage is not evident. History of hemorrhagic stroke of the right frontal area in August,. No surgical intervention was done. 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 History of seizures following brain bleed. No reported seizures since starting Keppra Hypertension Alcoholism, reports drinking approximately 5 shots of liquor per day. Serum alcohol level was less than 10 on arrival. Remote history of breast cancer status post bilateral mastectomy approximately 14 years ago Plan: The patient was seen and evaluated MRI, medications reviewed Currently stable from the critical care standpoint Could be transferred to the stepdown unit We'll continue to follow I have personally seen and examined the patient, performed the documentation and the assessment and plan as written. Number of minutes spent on the visit: 10.
--- NOTE | 2022-12-20 12:26 | CA ---
Transthoracic Echo Report Name: Guy Harvey Age: 67 Gender: M : 1955 Exam Date: 12/20/2022 08:01 Exam Location: [facility] Ht (in): 68 Wt (lb): 222 Ordering Physician: Dominick Morales MD Attending/Referring Phys: Internet Marketing Intern Dana Olson RDCS Procedure CPT: Indications: CVA Cardiac Hx: Technical Quality: Fair Contrast 1: Agitated Saline Total Dose (mL): 8 Contrast 2: Total Dose (mL): MEASUREMENTS (Male / Female) Normal Values 2D ECHO LV Diastolic Diameter PLAX 4.4 cm 4.2 - 5.9 / 3.9 - 5.3 cm LV Systolic Diameter PLAX 3.1 cm IVS Diastolic Thickness 1.3 cm 0.6 - 1.0 / 0.6 - 0.9 cm LVPW Diastolic Thickness 1.4 cm 0.6 - 1.0 / 0.6 - 0.9 cm LV Relative Wall Thickness 0.6 RV Internal Dim ED PLAX 3.5 cm LA Volume 55.7 cm??? 18 - 58 / 22 - 52 cm??? M-MODE Aortic Root Diameter MM 3.2 cm LA Systolic Diameter MM 4.2 cm LA Ao Ratio MM 1.3 AV Cusp Separation MM 1.3 cm DOPPLER AV Peak Velocity 123.2 cm/s AV Peak Gradient 6.1 mmHg AV Mean Velocity 88.7 cm/s AV Mean Gradient 3.5 mmHg AV Velocity Time Integral 27.4 cm LVOT Peak Velocity 112.0 cm/s LVOT Peak Gradient 5.0 mmHg LVOT Velocity Time Integral 23.7 cm MV Area PHT 2.7 cm??? Mitral E Point Velocity 66.2 cm/s Mitral A Point Velocity 72.6 cm/s Mitral E to A Ratio 0.9 MV Deceleration Time 280.2 ms MV E' Velocity 7.6 cm/s Mitral E to MV E' Ratio 8.7 FINDINGS Left Ventricle Mildly increased left ventricular wall thickness. Left ventricular cavity size normal. Normal left ventricular systolic function with no obvious regional wall motion abnormalities. Left ventricular ejection fraction is estimated at 55-60 %. Right Ventricle Mild right ventricular dilatation. Right Atrium Normal right atrial size. Negative agitated saline bubble study for right to left shunt. Left Atrium Normal left atrial size. Mitral Valve Structurally normal mitral valve. Trace to mild mitral regurgitation. Aortic Valve Trileaflet aortic valve. No aortic valve stenosis or regurgitation. Tricuspid Valve Structurally normal tricuspid valve. Mild tricuspid regurgitation. Pulmonic Valve Structurally normal pulmonic valve. Pericardium No pericardial effusion. Aorta Normal size aortic root and proximal ascending aorta. CONCLUSIONS 1. Normal left ventricle size and systolic function 2. Mild tricuspid regurgitation 3. No evidence of shunting by bubble study Previewed by: Dr. Libertad Omer MD (Electronically Signed) Final Date: 20 December 2022 12:25
[2022-12-20 15:50] LABS: Chol/HDL Ratio 3.69 Ratio; LDL Cholesterol,Calculated 116.9 mg/dL (0.0-131.0)
[2022-12-20] MEDS: ASPIRIN 81 MG PO SCH (17:22)
[2022-12-20] MEDS ORDERED: ATORVASTATIN 40 MG TAB PO SCH (21:00)
--- NOTE | 2022-12-21 08:32 | P.PN ---
Subjective Progress Note Date: 12/20/22 Pt feeling well today, no headache, dizziness, vision change. Denies chest pain or shortness of breath. BP remains under good control. Objective - Vital Signs Vital signs: Vital Signs Temp 97.9 F 12/21/22 03:42 Pulse 51 L 12/21/22 03:42 Resp 16 12/21/22 03:42 BP 148/84 12/21/22 03:42 Pulse Ox 95 12/21/22 03:42 FiO2 Intake & Output 12/20/22 12/21/22 12/21/22 18:59 06:59 18:59 Intake Total 250 540 240 Output Total 120 Balance 130 540 240 Weight 98 kg Intake: IV 150 Sodium Chloride 0.9% 1, 150 000 ml @ 75 mls/hr IV . [id number] [facility] Rx#:[id number] Oral 100 540 240 Output: Urine 120 Other: Voiding Method Urinal Urinal # Voids 0 - Exam Gen: well developed, well nourished male in NAD CV: RRR, no murmur Lungs: Normal effort, clear throughout Neuro: AAOx3 no focal deficit - Labs CBC & Chem 7: 12/19/22 03:31 12/19/22 03:31 Assessment and Plan Plan: Continue with present treatment, transfer out of ICU, continue to closely monitor BP. Neurology following
[2022-12-21 08:42] VITALS: BP 141/84; PULSE 65; RESP 18; TEMP 97.8
[2022-12-21] MEDS: amLODIPine 5 MG TAB PO SCH (08:43)
[2022-12-21] MEDS: ASPIRIN 81 MG PO SCH (08:43)
[2022-12-21] MEDS: THIAMINE 100 MG TAB PO SCH (08:48)
--- NOTE | 2022-12-21 09:40 | P.PN ---
Subjective Progress Note Date: 12/20/22 12/20/2022: Patient was seen for a follow-up. Patient states that he woke up at 3 AM with a headache which was very intense 7-9/10. It involves the left temporal region and left eye. After giving morphine, 15 minutes later, the headache went away. Overall it lasted for about 30 minutes. Patient states that this headache was as bad as the headache that brought him to the hospital which occurred for 2-1/2 days straight. The other headaches he gets is about 4- 6/10. Patient's was also present, who states the patient sometimes speaks faster than his thinking. Speech therapist recommended him to talk slowly. The word sometimes do not come out right, and he stutters. MRI Brain w/ and w/o revealed punctate areas of hyperintensity on diffusion suggest tiny focal acute ischemic changes within the right watershed, posterior right centrum semiovale and anterior medial left frontal lobe cortex. Subacute to old right watershed region white matter ischemic changes. Differential diagnosis should include vasogenic edema. Milder similar appearance may be within the lateral left temporal lobe. This raises possibility of underlying neoplasm although not clearly identified on the current exam. Finding suggests subacute hemorrhage right frontal lobe cavity. Acute hemorrhages not evident. Reviewed records from outside facility from [place]. Patient's CSF 09/28/2022 showed pink, hazy appearance, colorless, 1800 RBCs, 8 WBC, out of bed 23% neutrophils, 69% lymphocytes. 8% monocytes. CSF glucose normal 57, CSF protein is 68 (15-45), CSF VDRL negative, CSF alpha-fetoprotein pending Keppra level on 09/25/2022 was 34.9 (6-46) INR was normal. CSF cultures negative. No growth. <10 WBCs per low power field. MRI head without contrast 09/06/2022 revealed stable intraparenchymal hematoma in the right frontal lobe measuring up to 2.6 cm. There is minimal surrounding subarachnoid hemorrhage in the right frontal now. He is stable vasogenic edema in the right frontal lobe without midline shift. MRI head with and without contrast 09/26/2022 revealed increased right frontal and anterior right parietal subarachnoid blood. Right frontal anterior parietal gyriform enhancement, sulcal enhancement, considerations are reaction to subarachnoid blood, subacute ischemia, sequela of seizure activity. Enhancement of meninges, most notably in the right frontal area. Consider correlation with lumbar puncture. Right frontal hematoma 2.8 x 2.1 cm decrease when compared to 08/31/2022 however increased vasogenic edema, superior to the hematoma. Increased FLAIR hyperintensity within the sulci, right frontal and parietal lobes, likely increase subarachnoid blood. Increased gyral enhancement, right f rontal lobe, possibly from seizure activity or subacute ischemia. EKG was sinus rhythm. CSF opening pressure was 13 cm water, 16 mL of clear CSF was obtained. Patient's blood tests showed magnesium 1.8, CMP was significant for low sodium 132, BUN 29, creatinine 0.96. Hepatic panel normal, CBC normal. Computed tomography scan of the chest revealed centrilobular nodules and tree in bed nodu les within the posterior aspect of the right upper lobe secondary to infectious/inflammatory etiology i.e. developing pneumonia. No findings to suggest malignancy. Diffuse hepatic stenosis. Solitary 9 mm hypoattenuating right hepatic lobe lesion is too small to characterize but statistically benign. CTA of the head to 20 10/27/2022 revealed no aneurysm, hemodynamically significant stenosis or proximal occlusion. CTA of the neck showed no hemodynamically significant carotid or vertebral artery stenosis. 2-D echo 09/03/2022 revealed normal left ventricular end-diastolic dimension, normal left-ventricular ejection fraction 60%, mild left atrial enlargement, normal right heart chambers, trace MR. IVC not visualized. 12/19/2022: Patient initially seen by Dr. Dean Juárez. Please refer to his note for details. Patient is a 67-year-old male with history of brain bleed on 08/11/2022 of unknown cause. He did suffer from a closed head injury 2 days prior to the admission for brain bleed, when he tried to get up from underneath a fifth wheel truck, stood up and hit his head fairly hard on the top. 2 days later he had a seizure, was at that time in [place] in [place]. He was admitted to the hospital and was found to have right frontal hematoma. Did not require surgery. He had a second seizure in the hospital. He was started on Keppra. He was hos pitalized for 11 days. Patient states that it was not clearly mentioned if the brain bleed was related to the head trauma 2 days prior as mentioned above. He came to the hospital with chief complaints of worsening headache, even hurting to walk. It was very intense headache 10/10, could not tolerate it. At present the headache is 1/10. Patient's was also present, who mentions that patient has been having headaches almost on a daily basis since his admission to the hospital in August 2022. However the headache was very intense, unbearable yesterday and the day before. He is retired for last 8 years. Patient has an appointment with Dr. Taylor on 01/06/2022. Some of the workup to this hospital visit consisted of: Initial blood pressure is 158/99 and repeated is 149/96. Cbc with different and comprehensive metabolic panels seems unremarkable. CT of the head is reported as there appears to be some at the Frances change with sulcal effacement involving the right parietal lobe. Recommend further assessment with MRI head with and without contrast as well as MRV. Evolving infarct and underlying mass are some consideration. We note the finding on the recent MRA which suggested possible hemorrhage within the right frontal lobe, a separate region. The CT shows the patient encephalomalacia here. Some underlying subacute or chronic) isodense or hypodense) blood products are possible if this corresponds to the site of patient reported recent stroke. No acute intracranial hemorrhage is seen. I personally reviewed the CT and agree with the report. CTA head and neck is reported as the CT of the neck is reported as widely patent carotid and vertebral arteries of the neck. Was a CT angiography of the head is reported as exam confirmed patency of the dural venous sinuses. MRV will not be required. No large vessel intracranial arterial occlusion, significant stenosis or aneurysm changes seen. Anatomic variation of the anterior cerebral artery circulation as outlined above. The question a calm aneurysm on the previous MRA head on 12/06/2022 is not confirmed on the study. Objective - Vital Signs Vital signs: Vital Signs Temp 98.1 F 12/20/22 12:00 Pulse 51 L 12/20/22 12:00 Resp 16 12/20/22 12:00 BP 145/84 12/20/22 12:00 Pulse Ox 93 L 12/20/22 12:00 FiO2 Intake & Output 12/19/22 12/20/22 12/20/22 18:59 06:59 18:59 Intake Total 1007.699 825 250 Output Total 400 450 0 Balance 607.699 375 250 Weight 100.9 kg Intake: IV 975 825 150 Sodium Chloride 0.9% 1, 975 825 150 000 ml @ 75 mls/hr IV . [id number] [facility] Rx#:[id number] Intake, IV Titration 32.699 Amount Clevidipine Butyrate 25 32.699 mg In Empty Bag 1 bag @ 1 MG/HR 2 mls/hr IV .Q24H [facility] Rx#:[id number] Oral 100 Output: Urine 400 450 0 Other: Voiding Method Urinal Urinal Urinal # Voids 1 0 0 # Bowel Movements 1 - Exam Patient is a young-looking elderly male, very pleasant in no acute distress. Patient is alert awake oriented to time place and person. Speech and language functions are normal. Patient can name and repeat very well. No aphasia or dysarthria. Attention, concentration and fund of knowledge is adequate. On cranial nerve examination, pupils are equal, round and reacting to light, visual branch are full on confrontation, with no neglect on double simultaneous stimulation. Extraocular muscles are intact with no nystagmus. Face is symmetric, tongue protrudes to the midline. Palatal elevation and sensation normal, hearing and shoulder shrug normal, facial sensation normal. On muscle strength testing, there left-sided pronation but no drift, and the strength is normal in arms and legs distally and proximally. Sensory to touch is equal with no neglect on double simultaneous stimulation. Cerebellar function showed no ataxia for [id number] testing. No dysdiadochokinesia. No ataxia for [id number] testing on either side. Tone and bulk of muscles normal. Gait deferred.. On general examination, there is no carotid bruit or murmur, S1-S2 audible. Chest is clear on consultation. Abdomen is soft nontender. No organomegaly, bowel sounds present. Peripheral pulses are present. No edema. - Labs CBC & Chem 7: 12/19/22 03:31 12/19/22 03:31 Assessment and Plan Assessment: Acute Cephalgia, unclear etiology. Patient has been having headaches since underwent closed head injury in August 2022. The headaches intermittently get intensely worse of unclear cause. Acute ischemic stroke, multifocal, likely small vessel disease Abnormal signal on MRI involving bilateral parietal, and right temporal region on FLAIR, suggestive of possible PRES (posterior reversible encephalopathy syndrome). Differential also includes vasogenic edema from neoplasm, although no solid mass seen, therefore metastasis appears very unlikely. Encephalitis also unlikely with no fever or signs of infection or seizures. ?Reported aneurysm on right PATRICK on recent MRA head on 12/06/22 but CTA head 12/18/2022 was negative for aneurysm History of right frontal hematoma diagnosed 09/01/2022, likely due to closed head injury. Patient was evaluated by Neurosurgeon over at [facility] at [place], [place] and no intervention). Had headache trauma to left head two days prior to event, likely the cause of hematoma. 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 Crawley. Patient does have evidence of 4 tiny areas of acute ischemic stroke involving the left medial frontal, left anterior frontal, right parietal, left temporal region. Patient also has evidence of abnormal signal on FLAIR images involving bilateral hemisphere, right side involving the parietal temporal and on the left side involving the temporal occipital region. Because of bilateral nature, PRES (posterior reversible encephalopathy syndrome) is likely possibility. Vasogenic edema unlikely because of lack of any mass lesion with it. Encephalitis unlikely based upon clinical presentation. * We will start aspirin 81 mg daily for stroke prevention. * Lipid panel with cholesterol 195, LDL 116, HDL 52 and triglycerides 126. Start Lipitor 40 mg daily. * Recommend aggressive control of blood pressure to target < 130/80. * Hemoglobin A1c normal 5.2. * Recommend repeating MRI of the brain with and without contrast in 2-3 months for a follow-up. * Dr. Dean Juárez had spoken to reading radiology and he stated no aneurysm on CTA and he felt MRA showed anatomical variation but he did not feel aneurysm. * 2-D echo revealed normal left ventricular size and systolic function with EF 55-60%. Left atrial size is normal. No evidence of shunting by bubble study. * CTA of head revealed patent dural venous sinuses. No large vessel intercranial arterial occlusion, significant stenosis or aneurysmal changes is seen. Widely patent carotid and vertebral arteries of the neck. * EEG was performed, which is normal awake and drowsy. No epileptiform activity was seen. Continue Keppra 1500 mg twice a day. * Try Fioricet as needed for migraine. * Patient was counseled on alcohol cessation. * Patient has an appointment with Dr. Taylor, his neurologist on 01/06/2023. Time with Patient: Greater than 30
[2022-12-21] MEDS ORDERED: BUTALB/APAP/CAFF 50-325-40MG TAB PO PRN (09:56)
--- NOTE | 2022-12-21 11:29 | P.PN ---
Subjective Progress Note Date: 12/21/22 I am seeing this patient in new consultation today 12/19/2022 for ICU management, as the patient had a severe headache on arrival, and there was concern for recurrent hemorrhagic stroke. This is a 67-year-old male with history of recent hemorrhagic stroke over the right frontal region on 09/01/2022. Apparently, while the patient was in [place], he had a hemorrhagic CVA which was managed at an outside facility. The patient attributes this to sustaining head trauma while hitting his head on his camper i believe. The patient reports initial right sided hemiparesis and vision disturbances. Following his recovery, the patient's only remaining residual was slurred speech, and he has seen a speech therapist outpatient. The patient also had 2 episodes of seizures following his stroke, and is currently maintained on Keppra. 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 The patient was scheduled with a local neurologist, Dr. Taylor, for follow-up later this month. Patient also has history of hypertension, breast cancer status post mastectomy 14 years ago, and alcoholism. The patient presented to the emergency room yesterday morning complaining of a severe headache rated 10 out of 10 on a 10 point numerical scale. This was accompanied with some nausea but no vomiting. No other deficits were noted at that time. He is not on any anticoagulants or antiplatelet medication. Initial workup included a brain CT which showed some edematous changes with sulcal effacement involving the right parietal lobe. There was concern for evolving infarct or underlying mass. A follow-up brain CTA showed no acute vascular occlusions or significant stenosis. On my evaluation, the patient is on room air, in no acute distress. His headache has resolved, and he has no focal neurological deficits. Apparently, the patient was hypertensive in the emergency room, and Cleviprex was ordered but did not have to be started. Blood pressure seems to be well managed on a combination of his home Norvasc and when necessary labetalol pushes. CBC and BMP on arrival were unremarkable. Serum alcohol level was less than 10. He has no other complaints at this time. Vital signs are stable. The patient is seen today 12/20/2022 in follow-up in the intensive care unit. He is currently awake and alert in no acute distress. Status MRI of the brain revealed punctate areas of hyperintensity and diffusion suggest any focal acute ischemic changes within the right watershed, posterior right centrum semiovale and anterior medial left frontal lobe cortex. Subacute old right watershed region white matter ischemic changes. Differential diagnosis should include vasogenic edema. Possibility of underlying neoplasm not totally excluded. Findings suggest subacute hemorrhage right frontal lobe cavity. Acute hemorrhage is not evident. Blood pressure stable. Bradycardic. Maintaining O2 saturations in the 90s on room air. He's been off the Cleviprex. Continued on amlodipine. Continued on Keppra. The patient is seen today 12/21/2022 in follow-up on the selective care unit. He is currently sitting up in bed. Awake and alert in no acute distress. He states he had a minimal headache yesterday but no headache at this morning. No focal deficits. He is maintaining good O2 saturations in the 90s on room air. He's been afebrile. Hemodynamically stable. Objective - Vital Signs Vital signs: Vital Signs Temp 97.8 F 12/21/22 08:00 Pulse 65 12/21/22 08:00 Resp 18 12/21/22 08:00 BP 141/84 12/21/22 08:00 Pulse Ox 94 L 12/21/22 08:00 FiO2 Intake & Output 12/20/22 12/21/22 12/21/22 18:59 06:59 18:59 Intake Total 250 540 240 Output Total 120 Balance 130 540 240 Weight 98 kg Intake: IV 150 Sodium Chloride 0.9% 1, 150 000 ml @ 75 mls/hr IV . [id number] [facility] Rx#:[id number] Oral 100 540 240 Output: Urine 120 Other: Voiding Method Urinal Urinal # Voids 0 - Exam GENERAL EXAM: Alert, pleasant 67-year-old male, on room air, comfortable in no apparent distress. HEAD: Normocephalic and atraumatic EYES: Normal reaction of pupils, equal size. Equal tracking NOSE: Clear with pink turbinates. THROAT: No erythema or exudates. NECK: No masses, no JVD. CHEST: No chest wall deformity. LUNGS: Equal air entry with no crackles, wheeze, rhonchi or dullness. No conversational dyspnea. CVS: S1 and S2 normal with no audible murmur, regular rhythm. No extra heart sounds ABDOMEN: No hepatosplenomegaly, active bowel sounds, no guarding or rigidity. SPINE: No scoliosis or deformity SKIN: No rashes CENTRAL NERVOUS SYSTEM: No focal deficits, tone is normal in all 4 extremities. No dysarthria or disphasia noted EXTREMITIES: There is no peripheral edema, clubbing, or cyanosis. Peripheral pulses are intact. - Labs CBC & Chem 7: 12/19/22 03:31 12/19/22 03:31 Assessment and Plan Assessment: Acute headache, CT of the brain today shows sulcal effacement over the right parietal lobe which was concerning for mass or evolving infarct. Headache has improved. MRI of the brain revealed punctate areas of hyperintensity and diffusion suggest any focal acute ischemic changes within the right watershed, posterior right centrum semiovale and anterior medial left frontal lobe cortex. Subacute old right watershed region white matter ischemic changes. Differential diagnosis should include vasogenic edema. Possibility of underlying neoplasm not totally excluded. Findings suggest subacute hemorrhage right frontal lobe cavity. Acute hemorrhage is not evident. History of hemorrhagic stroke of the right frontal area in August,. No surgical intervention was done. 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 History of seizures following brain bleed. No reported seizures since starting Keppra Hypertension Alcoholism, reports drinking approximately 5 shots of liquor per day. Serum alcohol level was less than 10 on arrival. Remote history of breast cancer status post bilateral mastectomy approximately 14 years ago Plan: The patient was seen and evaluated Medications reviewed Currently stable from the pulmonary/critical care standpoint Home once cleared by neurology I have personally seen and examined the patient, performed the documentation and the assessment and plan as written. Number of minutes spent on the visit: 10.
--- NOTE | 2022-12-22 20:26 | P.DS ---
Providers Date of admission: 12/18/22 08:17 Expected date of discharge: 12/21/22 Attending physician: Farzana Hernandez Consults: 12/18/22 08:21 Consult Physician Stat Consulting Provider: Dean Juárez Consult Reason/Comments: Headache, history of hemorrhagic CVA Do you want consulting provider notified?: Already Contacted 12/18/22 11:25 Consult Physician Routine Consulting Provider: Vasile Slaughter Consult Reason/Comments: ICU management for Hx of bleed / BP Do you want consulting provider notified?: Yes Primary care physician: Farzana Hernandez Hospital Course: Acute headache Hospital course: 12/20/22 Pt feeling well today, no headache, dizziness, vision change. Denies chest pain or shortness of breath. BP remains under good control. 12/19/22 He is feeling better today, reports headache is subsiding, no dizziness, blurry vision, weakness. Pt s/p MRI today which does not show any new hemorrhage or CVA but redemonstrates subacute frontal lobe injury. BP well controlled. Per neurology: I reviewed patient's MRI of the brain in detail with neuroradiologist Dr. Crawley. Patient does have evidence of 4 tiny areas of acute ischemic stroke involving the left medial frontal, left anterior frontal, right parietal, left temporal region. Patient also has evidence of abnormal signal on FLAIR images involving bilateral hemisphere, right side involving the parietal temporal and on the left side involving the temporal occipital region. Because of bilateral nature, PRES (posterior reversible encephalopathy syndrome) is likely possibility. Vasogenic edema unlikely because of lack of any mass lesion with it. Encephalitis unlikely based upon clinical presentation. * We will start aspirin 81 mg daily for stroke prevention. * Lipid panel with cholesterol 195, LDL 116, HDL 52 and triglycerides 126. Start Lipitor 40 mg daily. * Recommend aggressive control of blood pressure to target < 130/80. * Hemoglobin A1c normal 5.2. * Recommend repeating MRI of the brain with and without contrast in 2-3 months for a follow-up. * Dr. Dean Juárez had spoken to reading radiology and he stated no aneurysm on CTA and he felt MRA showed anatomical variation but he did not feel aneurysm. * 2-D echo revealed normal left ventricular size and systolic function with EF 55-60%. Left atrial size is normal. No evidence of shunting by bubble study. * CTA of head revealed patent dural venous sinuses. No large vessel intercranial arterial occlusion, significant stenosis or aneurysmal changes is seen. Widely patent carotid and vertebral arteries of the neck. * EEG was performed, which is normal awake and drowsy. No epileptiform activity was seen. Continue Keppra 1500 mg twice a day. * Try Fioricet as needed for migraine. * Patient was counseled on alcohol cessation. * Patient has an appointment with Dr. Taylor, his neurologist on 01/06/2023. * * * * Significant clinical improvement. Denies chest pain, palpitations or shortness of breath. Denies lightheadedness dizziness or focal deficits. Denies blurred vision. Denies headache this morning. Patient will be discharged home today in a stable condition with guarded prognosis pending final DC recommendations and clearance per neurology. The impression and plan of care has been dictated as directed. : I performed a history and examination of this patient, discussed the same with the dictator. I agree with the dictator's note ,documented as a scribe. Any additional findings or plans will be noted. Patient Condition at Discharge: Stable Plan - Discharge Summary Discharge Rx Participant: Yes New Discharge Prescriptions: New Aspirin 81 mg PO DAILY tab Atorvastatin [Lipitor] 40 mg PO HS #30 tab Continue amLODIPine [Norvasc] 5 mg PO DAILY Thiamine [Vitamin B-1] 100 mg PO DAILY levETIRAcetam [Keppra] 1,500 mg PO BID Discharge Medication List Thiamine [Vitamin B-1] 100 mg PO DAILY 12/18/22 [History] amLODIPine [Norvasc] 5 mg PO DAILY 12/18/22 [History] levETIRAcetam [Keppra] 1,500 mg PO BID 12/18/22 [History] Aspirin 81 mg PO DAILY tab 12/21/22 [Rx] Atorvastatin [Lipitor] 40 mg PO HS #30 tab 12/21/22 [Rx] Follow up Appointment(s)/Referral(s): Farzana Hernandez DO [Primary Care Provider] - 3 Days (message left with office to call with follow up appointment) Loyd Taylor DO [STAFF PHYSICIAN] - 01/06/23 (As previously scheduled) Patient Instructions/Handouts: Seizure/Epilepsy Discharge Instructions & Follow-Up, Recurrent Seizures in Adults (DC) Discharge Disposition: HOME SELF-CARE
== END 2022-12-21 11:42 | disposition home or self-care (01) | DRG 102 ==
LOC: EC 05:26 → 3SCARD 08:17 → 2SICU 11:50 → 3SCARD 12-20 15:05
PROVIDERS: ADMIT Family Medicine; ATTEND Family Medicine
PROC: HZ2ZZZZ Detoxification Services for Substance Abuse Treatment (ICD-10-PCS; 2022-12-18)
PROC: 4A10X4Z Monitoring of Central Nervous Electrical Activity, External Approach (ICD-10-PCS; principal; 2022-12-19)
DX: G43.909 Migraine, unspecified, not intractable, without status migrainosus (principal); I61.1 Nontraumatic intracerebral hemorrhage in hemisphere, cortical; N17.9 Acute kidney failure, unspecified; I62.9 Nontraumatic intracranial hemorrhage, unspecified; I69.351 Hemiplegia and hemiparesis following cerebral infarction affecting right dominant side; I10 Essential (primary) hypertension; R25.1 Tremor, unspecified; Z82.3 Family history of stroke; G93.89 Other specified disorders of brain; K76.89 Other specified diseases of liver; G40.909 Epilepsy, unspecified, not intractable, without status epilepticus; I08.1 Rheumatic disorders of both mitral and tricuspid valves; Z85.3 Personal history of malignant neoplasm of breast; X58.XXXA Exposure to other specified factors, initial encounter; Z79.899 Other long term (current) drug therapy; Z90.13 Acquired absence of bilateral breasts and nipples
CPT/HCPCS: 36415; 70450; 70496; 70498; 70553; 80048; 80053; 80061; 80320; 83036; 85025; 85610; 85730; 93306; 95816; 96361; 96374; 96375; 99285

== ENCOUNTER 2022-12-31 09:15 | Emergency (ER) | payer MEDICARE ==
[2022-12-31 09:20] LABS: Glucose,Whole Blood 110 mg/dL (70-110)
[2022-12-31 09:30] LABS: Basophils % (A) 1 %; Eosinophils # (A) 0.1 k/uL (0-0.7); Eosinophils % (A) 2 %; HCT 42.9 % (39.0-53.0); Lymphocytes # (A) 2.1 k/uL (1.0-4.8); Lymphocytes % (A) 45 %; MCH 30.1 pg (25.0-35.0); MCHC 34.9 g/dL (31.0-37.0); MCV 86.2 fL (80.0-100.0); Mean Platelet Volume 7.5; Monocytes # (A) 0.5 k/uL (0-1.0); Monocytes % (A) 10 %; Neutrophils # (A) 1.9 k/uL (1.3-7.7); Neutrophils % (A) 39 %; Platelet Count 227 k/uL (150-450); RBC 4.98 m/uL (4.30-5.90); RDW 12.9 % (11.5-15.5); WBC 4.7 k/uL (3.8-10.6)
[2022-12-31] MEDS ORDERED: niCARdipine 20 MG in SODIUM CHLORIDE 0.9% 192 ML IV SCH (09:30)
[2022-12-31] MEDS ORDERED: levETIRAcetam IV 500 MG/5 ML VIAL IVP STA (09:31)
[2022-12-31] MEDS ORDERED: TRANEXAMIC 1,000 MG/100ML-NACL 1,000 MG in SALINE 1 100ML.BAG IV STA (09:31)
[2022-12-31 09:39] LABS: INR 0.9 (<1.2); Partial Thromboplastin Time 22.1 sec (22.0-30.0); Prothrombin Time 10.1 sec (9.0-12.0)
[2022-12-31] MEDS ORDERED: MANNITOL 20% PMX 500 ML in SALINE 1 500ML.BAG IV ONE (09:39)
[2022-12-31 09:40] LABS: ALT 37 U/L (4-49); AST 45 U/L (17-59); African American GFR (CKD) >90 (>60 ml/min/1.73 sqM); Albumin 4.4 g/dL (3.5-5.0); Alkaline Phosphatase 62 U/L (38-126); Anion Gap 8 mmol/L; Blood Urea Nitrogen 18 mg/dL (9-20); Calcium 9.2 mg/dL (8.4-10.2); Carbon Dioxide 26 mmol/L (22-30); Chloride 105 mmol/L (98-107); Creatine Kinase 86 U/L (55-170); Glucose 109 mg/dL (74-99); Non-African American GFR(CKD) >90 (>60 ml/min/1.73 sqM); Potassium 4.3 mmol/L (3.5-5.1); Sodium 139 mmol/L (137-145); Total Bilirubin 0.7 mg/dL (0.2-1.3); Total Protein 7.4 g/dL (6.3-8.2)
--- NOTE | 2022-12-31 09:41 | ED ---
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 Patient presents with less than while at 845. Per patient's . Informed EMS, patient had some mild symptoms that quickly progressed to including left-sided paralysis, left-sided facial droop. He did not wake up with these symptoms. However he does have a history of hemorrhagic stroke. Is only on aspirin and Trental blood thinners. Denies trauma. He is alert and oriented 4. Has no other acute complaints at this time. Presents for further evaluation at this time. Denies headache. Denies chest pain or shortness breath. Denies any abdominal pain. Presents for further evaluation. - Related Data Home Medications Medication Instructions Recorded Confirmed Thiamine [Vitamin B-1] 100 mg PO DAILY 12/18/22 12/18/22 amLODIPine [Norvasc] 5 mg PO DAILY 12/18/22 12/18/22 levETIRAcetam [Keppra] 1,500 mg PO BID 12/18/22 12/18/22 Previous Rx's Medication Instructions Recorded Aspirin 81 mg PO DAILY tab 12/21/22 Atorvastatin [Lipitor] 40 mg PO HS #30 tab 12/21/22 Allergies Allergy/AdvReac Type Severity Reaction Status Date / Time No Known Allergies Allergy Verified 12/31/22 09:19 Review of Systems ROS Statement: Those systems with pertinent positive or pertinent negative responses have been documented in the HPI. Review of Systems: CONST: Denies fever EYES: Denies blurry vision ENT: Denies nasal congestion C/V: Denies Chest pain RESP: Denies shortness of breath GI: Denies abdominal pain : Denies dysuria SKIN: Denies rash. MSK: Denies joint pain. NEURO: Denies headache ROS Other: All systems not noted in ROS Statement are negative. Past Medical History Past Medical History: Cancer, Hypertension Additional Past Medical History / Comment(s): breast cancer History of Any Multi-Drug Resistant Organisms: None Reported Past Surgical History: Breast Surgery Past Anesthesia/Blood Transfusion Reactions: No Reported Reaction Type of Cardiac Device: Loop Device Placement Date:: September 2022 Past Psychological History: No Psychological Hx Reported Smoking Status: Never smoker Past Alcohol Use History: Daily Past Drug Use History: None Reported - Past Family History Father Family Medical History: CVA/TIA General Exam - General Exam Comments Initial Comments: General: Appears in mild distress. HEAD: Normal with no signs of head trauma. EYES: Pupils are 2-3 mm and equal bilaterally. Conjunctiva normal. No discharge. ENT: Hearing grossly intact, normal oropharynx. RESPIRATORY: Clear breath sounds bilaterally. No wheezes, rales, or rhonchi. C/V: Regular rate and rhythm. S1 and S2 auscultated, no edema, peripheral pulses 2+ and intact throughout ABD: Abd is soft, nontender, nondistended EXT: Normal range of motion, no obvious deformity SKIN: No rashes or lesions observed on exposed skin. NEURO: Alert and oriented 4. NIH of at least 14, with 1 point for partial left-sided gaze palsy, 2 points for partial paralysis of the left lower face, 4 points for a complete paralysis of the left arm, 4 points for complete paralysis of the left leg. 2 points for ataxia in 2 limbs. 1 point for dysarthria. History of intracranial hemorrhage. Last known well was 0845 AM. Course Vital Signs 12/31/22 12/31/22 12/31/22 09:15 10:10 10:20 Temperature 97.4 F L 97.6 F Pulse Rate 115 H 80 Respiratory 20 19 Rate Blood Pressure 153/97 149/76 O2 Sat by Pulse 94 L 95 Oximetry Fraction of 50 Inspired Oxygen (FIO2) Procedures - Intubation Sedative: Etomidate Mg Given: 20 Paralytic: Rocuronium Mg Given: 60 Laryngoscope: other (glidescope) Size: 4 ET Tube Size: 8 Tube Secured Depth (cm): 26 Tube Secured Location: lips Tube Placement Confirmation: visualized tube passing through cords, equal breath sounds bilaterally, no breath sounds over epigastrium, confirmation by capnometry Patient Tolerated Procedure: well Intubation Complications: none Medical Decision Making - Medical Decision Making Was pt. sent in by a medical professional or institution (, PA, BAND SAWMILL OPERATOR, urgent care, hospital, or fci...) When possible be specific @ -No Did you speak to anyone other than the patient for history (EMS, parent, family, police, friend...)? What history was obtained from this source @ -I spoke with the patient's , sister who provided additional history. Did you review nursing and triage notes (agree or disagree)? Why? @ -I reviewed and agree with nursing and triage notes Were old charts reviewed (outside hosp., previous admission, EMS record, old EKG, old radiological studies, urgent care reports/EKG's, fci records)? Report findings @ -Old charts reviewed including from previous admission. Differential Diagnosis (chest pain, altered mental status, abdominal pain women, abdominal pain men, vaginal bleeding, weakness, fever, dyspnea, syncope, headache, dizziness, GI bleed, back pain, seizure, CVA, palpatations, mental health, musculoskeletal)? @ -Differential CVA Ischemic stroke, hemorrhagic stroke, brain tumor, atypical migraine, Wernicke's encephalopathy, seizure, multiple sclerosis, meningitis, encephalitis, hypoglycemia, Guillain-Swartz, electrolytes disturbance, myasthenia gravis.... This is not meant to be an all-inclusive list EKG interpreted by me (3pts min.). @ -As above X-rays interpreted by me (1pt min.). @ -Chest x-ray reveals satisfactory ET tube placement as well as OG tube placement. CT interpreted by me (1pt min.). @ -CT brain shows a right-sided intracranial hemorrhage with midline shift to the left. CT angiogram returned afterwards and showed redemonstration of the midline shift per radiology, with concern for possible early herniation. These results returned after patient already been transferred. U/S interpreted by me (1pt. min.). @ -None done What testing was considered but not performed or refused? (CT, X-rays, U/S, labs)? Why? @ -None What meds were considered but not given or refused? Why? @ -None Did you discuss the management of the patient with other professionals (professionals i.e. DrJoslyn, PA, BAND SAWMILL OPERATOR, lab, RT, psych nurse, public health social worker, real estate firm manager, teacher, small business banking officer, casey saw operator)? Give summary @ -Discussed with Dr. Medina of neuro [facility], [place] who was in agreement with transfer and care. I also spoke with Dr. Sanchez who accepted the patient at [facility]. Was smoking cessation discussed for >3mins.? @ -No Was critical care preformed (if so, how long)? @ -Yes, 40 minutes. Were there social determinants of health that impacted care today? How? (Homelessness, low income, unemployed, alcoholism, drug addiction, transp ortation, low edu. Level, literacy, decrease access to med. care, custodial, rehab)? @ -No Was there de-escalation of care discussed even if they declined (Discuss DNR or withdrawal of care, Hospice)? DNR status @ -No What co-morbidities impacted this encounter? (DM, HTN, Smoking, COPD, CAD, Cancer, CVA, ARF, Chemo, Hep., AIDS, mental health diagnosis, sleep apnea, morbid obesity)? @ -Hypertension, intracranial hemorrhage Was patient admitted / discharged? Hospital course, mention meds given and route, prescriptions, significant lab abnormalities, going to OR and other pertinent info. @ -East on the patient's presentation and physical exam, and concern for CVA. Less than all is a 40 5 AM. NIH is 14. Patient is protecting his airway at this time. Vital signs are remarkable for mild hypertension. He is not a TPA candidate due to the history of intracranial bleeds. However we will activate code stroke at 0919. The Cardizem drip was empirically ordered at this time as well in the event that he does have an intracranial bleed. Patient will receive CT imaging and labs. He was in agreement this plan. I was notified by surgical scrub technologist that patient has an intracranial bleed on the right. It appears that there is also midline shift to the left. Dr. Medina of neuro critical care returned my stroke activation called at approximately 0940. He was in agreement with the plan for transfer to [facility]. Patient will be started on a nicardipine drip, in addition to a dose of IV mannitol, IV push of Keppra, as well as TXA. Patient is having a hard time tolerating his secretions at this time, and therefore after discussion with family and himself the decision was made to intubate the patient, indication for airway protection. Risks were discussed with family as well as patient, including possible delay in transfer but I do believe this is best for the patient to ensure a safe transfer. Family and patient were in agreement with this plan. Please see separate intubation note for further details. Patient tolerated intubation well. I spoke with the accepting team at [facility], Dr. Sanchez who accepted the transfer. Patient will be transferred in critical condition. Will be transferred on propofol drip, Cardene drip after receiving TXA, Keppra. Goal blood pressures discussed with EMS include systolics less than 150 and diastolic less than 100. There were in agreement this plan. Undiagnosed new problem with uncertain prognosis? @ -No Drug Therapy requiring intensive monitoring for toxicity (Heparin, Nitro, Insulin, Cardizem)? @ -No Were any procedures done? @ -No Diagnosis/symptom? @ -Hypertension, right-sided intraparenchymal hemorrhage,Left subarachnoid frontal hemorrhage Acute, or Chronic, or Acute on Chronic? @ -Acute Uncomplicated (without systemic symptoms) or Complicated (systemic symptoms)? @ -Complicated Side effects of treatment? @ -No Exacerbation, Progression, or Severe Exacerbation? @ -No Poses a threat to life or bodily function? How? (Chest pain, [place], [place], pneumonia, PE, COPD, DKA, ARF, appy, cholecystitis, CVA, Diverticulitis, Homicidal, Suicidal, threat to staff... and all critical care pts) @ -Yes Diagnosis/symptom? @ -Intubation for airway protection Acute, or Chronic, or Acute on Chronic? @ -Acute Uncomplicated (without systemic symptoms) or Complicated (systemic symptoms)? @ -Uncomplicated Side effects of treatment? @ -none Exacerbation, Progression, or Severe Exacerbation] @ -no Poses a threat to life or bodily function? @ -no - Lab Data Result diagrams: 12/31/22 09:23 12/31/22 09:23 Lab Results 12/31/22 12/31/22 12/31/22 Range/Units 09:18 09:23 09:23 WBC 4.7 (3.8-10.6) k/uL RBC 4.98 (4.30-5.90) m/uL Hgb 15.0 (13.0-17.5) gm/dL Hct 42.9 (39.0-53.0) % MCV 86.2 (80.0-100.0) fL MCH 30.1 (25.0-35.0) pg MCHC 34.9 (31.0-37.0) g/dL RDW 12.9 (11.5-15.5) % Plt Count 227 (150-450) k/uL MPV 7.5 Neutrophils % 39 % Lymphocytes % 45 % Monocytes % 10 % Eosinophils % 2 % Basophils % 1 % Neutrophils # 1.9 (1.3-7.7) k/uL Lymphocytes # 2.1 (1.0-4.8) k/uL Monocytes # 0.5 (0-1.0) k/uL Eosinophils # 0.1 (0-0.7) k/uL Basophils # 0.0 (0-0.2) k/uL PT 10.1 (9.0-12.0) sec INR 0.9 (<1.2) APTT 22.1 (22.0-30.0) sec Sodium (137-145) mmol/L Potassium (3.5-5.1) mmol/L Chloride (98-107) mmol/L Carbon Dioxide (22-30) mmol/L Anion Gap mmol/L BUN (9-20) mg/dL Creatinine (0.66-1.25) mg/dL Est GFR (CKD-EPI)AfAm (>60 ml/min/1.73 sqM) Est GFR (CKD-EPI)NonAf (>60 ml/min/1.73 sqM) Glucose (74-99) mg/dL POC Glucose (mg/dL) 110 (70-110) mg/dL POC Glu Counterintelligence Specialist ID Leodan Justice Calcium (8.4-10.2) mg/dL Total Bilirubin (0.2-1.3) mg/dL AST (17-59) U/L ALT (4-49) U/L Alkaline Phosphatase (38-126) U/L Creatine Kinase (55-170) U/L Troponin I (0.000-0.034) ng/mL Total Protein (6.3-8.2) g/dL Albumin (3.5-5.0) g/dL Urine Color Urine Appearance (Clear) Urine pH (5.0-8.0) Ur Specific [place] (1.001-1.035) Urine Protein (Negative) Urine Glucose (UA) (Negative) Urine Ketones (Negative) Urine Blood (Negative) Urine Nitrite (Negative) Urine Bilirubin (Negative) Urine Urobilinogen (<2.0) mg/dL Ur Leukocyte Esterase (Negative) Urine Opiates Screen (NotDetected) Ur Oxycodone Screen (NotDetected) Urine Methadone Screen (NotDetected) Ur Propoxyphene Screen (NotDetected) Ur Barbiturates Screen (NotDetected) U Tricyclic Antidepress (NotDetected) Ur Phencyclidine Scrn (NotDetected) Ur Amphetamines Screen (NotDetected) U Methamphetamines Scrn (NotDetected) U Benzodiazepines Scrn (NotDetected) Urine Cocaine Screen (NotDetected) U Marijuana (THC) Screen (NotDetected) 12/31/22 12/31/22 12/31/22 Range/Units 09:23 09:23 10:10 WBC (3.8-10.6) k/uL RBC (4.30-5.90) m/uL Hgb (13.0-17.5) gm/dL Hct (39.0-53.0) % MCV (80.0-100.0) fL MCH (25.0-35.0) pg MCHC (31.0-37.0) g/dL RDW (11.5-15.5) % Plt Count (150-450) k/uL MPV Neutrophils % % Lymphocytes % % Monocytes % % Eosinophils % % Basophils % % Neutrophils # (1.3-7.7) k/uL Lymphocytes # (1.0-4.8) k/uL Monocytes # (0-1.0) k/uL Eosinophils # (0-0.7) k/uL Basophils # (0-0.2) k/uL PT (9.0-12.0) sec INR (<1.2) APTT (22.0-30.0) sec Sodium 139 (137-145) mmol/L Potassium 4.3 (3.5-5.1) mmol/L Chloride 105 (98-107) mmol/L Carbon Dioxide 26 (22-30) mmol/L Anion Gap 8 mmol/L BUN 18 (9-20) mg/dL Creatinine 0.75 (0.66-1.25) mg/dL Est GFR (CKD-EPI)AfAm >90 (>60 ml/min/1.73 sqM) Est GFR (CKD-EPI)NonAf >90 (>60 ml/min/1.73 sqM) Glucose 109 H (74-99) mg/dL POC Glucose (mg/dL) (70-110) mg/dL POC Glu Counterintelligence Specialist ID Calcium 9.2 (8.4-10.2) mg/dL Total Bilirubin 0.7 (0.2-1.3) mg/dL AST 45 (17-59) U/L ALT 37 (4-49) U/L Alkaline Phosphatase 62 (38-126) U/L Creatine Kinase 86 (55-170) U/L Troponin I <0.012 (0.000-0.034) ng/mL Total Protein 7.4 (6.3-8.2) g/dL Albumin 4.4 (3.5-5.0) g/dL Urine Color Light Yellow Urine Appearance Clear (Clear) Urine pH 6.5 (5.0-8.0) Ur Specific [place] 1.021 (1.001-1.035) Urine Protein Negative (Negative) Urine Glucose (UA) Negative (Negative) Urine Ketones Negative (Negative) Urine Blood Negative (Negative) Urine Nitrite Negative (Negative) Urine Bilirubin Negative (Negative) Urine Urobilinogen <2.0 (<2.0) mg/dL Ur Leukocyte Esterase Negative (Negative) Urine Opiates Screen Not Detected (NotDetected) Ur Oxycodone Screen Not Detected (NotDetected) Urine Methadone Screen Not Detected (NotDetected) Ur Propoxyphene Screen Not Detected (NotDetected) Ur Barbiturates Screen Not Detected (NotDetected) U Tricyclic Antidepress Not Detected (NotDetected) Ur Phencyclidine Scrn Not Detected (NotDetected) Ur Amphetamines Screen Not Detected (NotDetected) U Methamphetamines Scrn Not Detected (NotDetected) U Benzodiazepines Scrn Not Detected (NotDetected) Urine Cocaine Screen Not Detected (NotDetected) U Marijuana (THC) Screen Not Detected (NotDetected) - EKG Data -: EKG Interpreted by Me EKG Comments: 12-lead Electrocardiogram Interpretation Note EKG was reviewed and interpreted by myself. 12-lead ECG performed at 0919 is interpreted by me as revealing normal sinus rhythm at a rate of 66 beats per minute. [place] is normal.. NH Intervals 188 ms, QRS duration is 98 ms, QTc is 405 ms.. There were no ST or T wave abnormalities to suggest myocardial ischemia or injury. R wave progression across the precordium was satisfactory. By my interpretation this EKG is non-diagnostic for acute ischemia. Critical Care Time Critical Care Time: Yes Total Critical Care Time: 40 Disposition Clinical Impression: Cerebrovascular accident (CVA), Intracranial hemorrhage, Hypertension, Intubation of airway performed without difficulty, Subarachnoid hemorrhage Disposition: OTHER INSTITUTION NOT DEFINED Condition: Critical Referrals: None,Stated [REFERRING] - 1-2 days Time of Disposition: 10:16 - Out of Hospital Transfer - Req. Specs Out of Hospital Transfer - Requested Specifics: Other [facility]
[2022-12-31] MEDS ORDERED: ETOMIDATE 2 MG/ML 10 ML VIAL IVP STA (09:55)
[2022-12-31] MEDS ORDERED: ROCURONIUM 10 MG/ML (5 ML VIAL) IV STA (09:55)
--- NOTE | 2022-12-31 09:55 | CT ---
EXAMINATION TYPE: CT brain wo con DATE OF EXAM: 12/31/2022 COMPARISON: 12/18/2022 HISTORY: Neuro deficit. CT DLP: 1177.[address] of the brain was performed. There is a large intraparenchymal hemorrhage which has occurred in the interval right parietal lobe m easuring 4.6 x 4.2 cm. There is dissection into the right lateral ventricle. There is midline shift f rom right to left of nearly 7 mm. Impending subfalcine herniation is difficult to exclude. Surroundin g edema. Subarachnoid hemorrhage within the left frontal lobe is difficult to exclude C image 43 sequ ence 2021. Remote insult right frontal lobe. Osseous calvarium is intact. If symptoms persist consider MRI. IMPRESSION: 1. Interval development of a large right parietal intraparenchymal hemorrhage hemorrhage dissecting i nto the right lateral ventricle. 2. Midline shift of nearly 7 mm from right to left. Impending subfalcine herniation is difficult to e xclude. 3. Small left frontal subarachnoid hemorrhage is difficult evidence
--- NOTE | 2022-12-31 10:10 | CT ---
EXAMINATION TYPE: CT angio head neck DATE OF EXAM: 12/31/2022 COMPARISON: none HISTORY: Neuro deficit. CT DLP: 737 mGycm CONTRAST: Performed with IV Contrast, patient injected with 65ml mL of Isovue 370. Combination Contrast CTA cervical carotids and [place] CTA cervical carotids with 3-D recons truction Contrast CTA of the cervical carotids was performed 3-D reconstruction imaging obtained at a separate workstation. Right carotid system: Mild plaque is seen of the right common carotid artery. There is mild plaque a lso noted at the carotid bulb and proximal ICA. No significant diameter reduction. ECA is patent. Right vertebral artery appears unremarkable. Left carotid system: Mild plaque is seen of the left common carotid artery. There is mild plaque als o noted at the carotid bulb and proximal ICA. No significant diameter reduction. ECA is patent. Lef t vertebral artery appears unremarkable. IMPRESSION: 1. No significant diameter reduction to account for the patient's symptoms. CTA [place] with 3-D reconstruction Contrast CTA of the [place] was performed 3-D reconstruction imaging obtained at a separate workstation. Redemonstrated is a large right intraparenchymal hemorrhage with midline shift from right to left. Se e CT report of the brain. I do not see evidence for sizable aneurysm. Diminutive right A1 segment. Th is may be related to mass effect. IMPRESSION: 1. Large right intraparenchymal hemorrhage or midline shift right to left. Impending subfalcine herni ation difficult to exclude. Sizable aneurysm is not seen. Diminutive right A1 segment NASCET criteria was used in interpretation of this exam?
--- NOTE | 2022-12-31 10:21 | XR ---
EXAMINATION TYPE: XR chest 1V portable DATE OF EXAM: 12/31/2022 HISTORY: Shortness of breath. COMPARISON: 12/08/2011 TECHNIQUE: Single view of the chest is submitted. FINDINGS: Endotracheal tube is appropriately placed with the distal tip approximately 4.6 cm from the lennie. N G tube is seen coursing into the stomach. Chronic elevation right hemidiaphragm. Mild increased density at the lung bases may reflect atelectas is or developing infiltrate. The heart is stable. Hilar and mediastinal structures are within normal limits. Degenerative changes are seen of the dorsal spine. IMPRESSION: 1. Indwelling tubes and catheters appear to be appropriately placed. 2. Basilar atelectasis and/or a small developing infiltrates.
[2022-12-31 11:00] VITALS: BP 149/76; PULSE 80; RESP 19
[2022-12-31 11:08] LABS: Appearance,Urine Clear (Clear); Bilirubin,Urine Negative (Negative); Blood,Urine Negative (Negative); Color,Urine Light Yellow; Glucose,Urine (UA) Negative (Negative); Ketones,Urine Negative (Negative); Leukocyte Esterase,Urine Negative (Negative); Nitrite,Urine Negative (Negative); PH, Urine 6.5 (5.0-8.0); Protein,Urine Negative (Negative); Specific Gravity,Urine 1.021 (1.001-1.035); Urobilinogen,Urine <2.0 mg/dL (<2.0)
[2022-12-31 11:25] LABS: Amphetamine Screen,Urine Not Detected (NotDetected); Barbiturate Screen,Urine Not Detected (NotDetected); Benzodiazepines Screen,Urine Not Detected (NotDetected); Cocaine Screen,Urine Not Detected (NotDetected); Methadone Screen, Urine Not Detected (NotDetected); Opiate Screen,Urine Not Detected (NotDetected); Oxycodone Screen, Urine Not Detected (NotDetected); Phencyclidine Screen,Urine Not Detected (NotDetected); Tricyclic Antidepressant,Urine Not Detected (NotDetected); Urn Cannabinoid Scrn Not Detected (NotDetected)
[2022-12-31 13:11] VITALS: TEMP 97.6
== END 2022-12-31 10:20 | disposition other institution (70) ==
LOC: SUPCPDRO 09:15 → EC 09:15
DX: I63.9 Cerebral infarction, unspecified (principal); I60.9 Nontraumatic subarachnoid hemorrhage, unspecified; I10 Essential (primary) hypertension; Z79.899 Other long term (current) drug therapy
CPT/HCPCS: 99291; 31500; 96365; 96367; 96368; 96366 ×9; 96375; 36415; 94002; 93005; 80053; 82550; 84484; 85025; 85610; 85730; 81003; 80306; 71045; 70496; 70450; 70498; J1953; J2704; Q9967